=== PATIENT | female | born 1970 | race Caucasian/White ===

== ENCOUNTER 2018-05-28 12:00 | Inpatient (IN) ==
--- NOTE | 2018-05-28 12:32 | Emergency Department Note ---
ED Disposition Clinical Impression: Hypokalemia Sepsis Qualifiers: Sepsis type: sepsis due to unspecified organism Qualified Code(s): A41.9 - Sepsis, unspecified organism Disposition: Admitted As Inpatient Condition on Discharge: Good Referrals: Herman Ignacio MD [Primary Care Provider] - - Critical Care Critical Care Time: No Attestation: On 05/28/18, the high probability of a clinically significant, sudden or life th reatening deterioration of the following system(s) required my full and direct attention, intervention and personal management. The time I documented below is in addition to time spent performing reported procedures but includes the following listed in this critical care notation. Medical Decision Making - Dionte Inquiry Pt receiving controlled substance: No Vital Signs: 05/28/18 12:30 05/28/18 12:45 05/28/18 13:00 Temperature 95.9 F L 95.9 F L Temperature Source Rectal Rectal Pulse Rate 95 H Pulse Rate [Left Radial] 115 H 90 Respiratory Rate 20 17 Blood Pressure [Right Arm] 94/56 L 99/67 L Blood Pressure Mean [Right Arm] 68 77 Blood Pressure Source [Right Arm] Automatic Cuff Automatic Cuff Blood Pressure Position [Right Arm] Sitting Sitting 02 Sat by Pulse Oximetry 95 93 L Oxygen Delivery Method Room Air Room Air 05/28/18 13:32 05/28/18 14:00 05/28/18 14:22 Temperature 95.7 F L Temperature Source Rectal Pulse Rate Pulse Rate [Left Radial] 88 95 H 94 H Respiratory Rate 18 17 16 Blood Pressure [Right Arm] 103/63 L 90/44 L 109/44 L Blood Pressure Mean [Right Arm] 76 59 65 Blood Pressure Source [Right Arm] Automatic Cuff Automatic Cuff Automatic Cuff Blood Pressure Position [Right Arm] Supine Sitting Sitting 02 Sat by Pulse Oximetry 95 95 95 Oxygen Delivery Method Room Air Room Air Room Air 05/28/18 14:48 05/28/18 15:16 05/28/18 15:50 Temperature 97.6 F Temperature Source Oral Pulse Rate Pulse Rate [Left Radial] 96 H 99 H 96 H Respiratory Rate 16 16 Blood Pressure [Right Arm] 96/54 L 117/73 114/68 Blood Pressure Mean [Right Arm] 68 87 83 Blood Pressure Source [Right Arm] Automatic Cuff Automatic Cuff Automatic Cuff Blood Pressure Position [Right Arm] Sitting Sitting Sitting 02 Sat by Pulse Oximetry 95 92 L 93 L Oxygen Delivery Method Room Air Room Air Room Air - Lab Data Lab Results 05/28/18 12:18: WBC 21.6 H*, RBC 5.53 H, Hgb 14.7, Hct 48.0 H, MCV 86.9, MCH 2 6.5 L, MCHC 30.5 L, RDW 16.6, Plt Count 336, MPV 9.0, Neut % (Auto) 89.9 H, Lymph % (Auto) 4.2 L, [place] % (Auto) 5.0, Eos % (Auto) 0.2, Baso % (Auto) 0.6, Neut # (Auto) 19.4 H, Lymph # (Auto) 0.9, [place] # (Auto) 1.1 H, Eos # (Auto) 0.0, Baso # (Auto) 0.1, Total Counted 100, Neutrophils % (Manual) 53, Band Neutrophils % 39.0 H, Lymphocytes % (Manual) 5 L, Monocytes % (Manual) 3, Platelet Estimate Normal, Hypochromasia 2+ 05/28/18 12:18: Sodium 132 L, Potassium 2.2 L*, Chloride 88 L, Carbon Dioxide 26, Anion Gap 20.2 H, BUN 13, Creatinine 1.03 H, Estimated Creat Clear 55, Estimated GFR 57 L, Est GFR ( Amer) 69, Glucose 125 H, Calcium 9.4, Total Bilirubin 3.5 H, AST 3023 H*, ALT 397 H*, Alkaline Phosphatase 338 H, Troponin I < 0.02, Total Protein 7.0, Albumin 2.0 L, Globulin 5.0 H, Albumin/Globulin Ratio 0.4 L, Lipase 29 L 05/28/18 12:18: Lactate 11.4 H 05/28/18 12:18: D-Dimer 2890 H* Result diagrams: 05/28/18 12:18 05/28/18 12:18 Orders (Tests/Meds): ED MEDICATIONS Generic Name Dose Route Start Last Admin Trade Name Freq PRN Reason Stop Dose Admin Levofloxacin/Dextrose 500 mg in 100 mls @ 100 mls/hr 05/28/18 15:45 Levaquin 500mg/100ml Premix IV 06/11/18 15:44 Q24H KAREN Protocol Discontinued Medications Generic Name Dose Route Start Last Admin Trade Name Freq PRN Reason Stop Dose Admin Albuterol/Ipratropium 3 ml 05/28/18 12:37 05/28/18 12:39 Duoneb 3ml Neb 05/28/18 12:38 3 ml ONCE ONE Administration Albuterol/Ipratropium 3 ml 05/28/18 12:44 05/28/18 12:45 Duoneb 3ml Neb 05/28/18 12:45 3 ml ONCE ONE Administration Aspirin 324 mg 05/28/18 12:27 05/28/18 12:32 Aspirin 81mg Chewable Tablet PO 05/28/18 12:28 324 mg ONCE ONE Administration Sodium Chloride 1,000 mls @ 999 mls/hr 05/28/18 12:45 05/28/18 12:39 Sod Chlor 0.9% 1000ml Bag IV 05/28/18 13:45 999 mls/hr .Q1H1M KAREN Administration Sodium Chloride 1,610 mls @ 805 mls/hr 05/28/18 12:49 05/28/18 12:58 Sod Chlor 0.9% 1000ml Bag 30 ml/kg infuse over 2 hr (1610 ml) 05/28/18 14:48 805 mls/hr IV Administration .Q2H ONE Piperacillin Sod/Tazobactam 100 mls @ 200 mls/hr 05/28/18 12:50 05/28/18 12:54 Sod 3.375 gm/ Sodium Chloride IV 05/28/18 12:51 200 mls/hr Q6H ONE Administration Protocol Potassium Chloride/Water 100 mls @ 50 mls/hr 05/28/18 13:16 05/28/18 14:18 Potassium Chloride 20meq/100ml Ivpb IV 05/28/18 15:15 50 mls/hr ONCE ONE Administration Ioversol 70 ml 05/28/18 13:51 05/28/18 13:52 Rad-Optiray 350 100ml Vial IV 05/28/18 13:52 70 ml ONCE ONE Administration Methylprednisolone Sodium Succinate 125 mg 05/28/18 12:34 05/28/18 12:38 Solu-Medrol 125mg/2ml Vial IV 05/28/18 12:35 125 mg ONCE ONE Administration Sodium Chloride 10 ml 05/28/18 13:51 05/28/18 13:52 Rad-Saline Flush 10ml Syringe IV 05/28/18 13:52 10 ml ONCE ONE Administration Sodium Chloride 50 ml 05/28/18 13:51 05/28/18 13:52 Rad-Ns 50ml Vial IV 05/28/18 13:52 50 ml ONCE ONE Administration ORDERS Category Date Time Status Complete Blood Count Auto Diff Stat Lab 05/28/18 12:18 Results Peripheral Smear Review Stat Lab 05/28/18 12:18 Results Blood Culture Stat Micro 05/28/18 12:18 Received - CT Data CT Scan: Chest Time Received: 15:52 (no pe, +right pneumonia) - ECG Data Tracing #1 nsr 87, increased QTc, no stemi Medical Decision Narrative: admit d/w Dr Ignacio General Adult HPI - General Stated complaint: SOB,Right Lung hurts Time Seen by Provider: 05/28/18 12:30 Source of Information: Patient - History of Present Illness HPI narrative: mild to mod off and on anterior chest pain tight today, gone now, nonrad, no fever, no injury, no hx mi, +smoke - Related Data Home Medications Medication Instructions Recorded Confirmed Albuterol Sulfate [Ventolin HFA] 1 puff INHALATION Q4H 05/28/18 05/28/18 Levothyroxine Sodium [Synthroid 25 mcg PO DAILY 05/28/18 05/28/18 25mcg (0.025mg) tablet] PARoxetine HCl [Paroxetine HCl] 40 mg PO DAILY 05/28/18 05/28/18 Ropinirole HCl [Requip] 0.5 mg PO DAILY 05/28/18 05/28/18 risperiDONE [Risperidone] 3 mg PO ONCE 05/28/18 05/28/18 Previous Rx's Medication Instructions Recorded hydroxyzine pamoate 25 mg capsule 25 mg PO DAILY PRN #30 cap 05/16/18 Allergies Allergy/AdvReac Type Severity Reaction Status Date / Time ketorolac [From TORADOL] Allergy Severe S-SWELLS-OR Verified 05/16/18 14:04 AL/THROAT acetaminophen [From LORTAB] Allergy Unknown Verified 05/16/18 14:04 hydrocodone [From LORTAB] Allergy Unknown Verified 05/16/18 14:04 [facility] History - Hepatitis A Screen Attestation statement:: This patient has been screened for Hepatitis A risk factors. Medical History: Reports:: Anxiety, Chronic Obstructive Pulmonary Disease (COPD), Depression Other Surgeries: Yes: , Other Amputation: No Fractures: No Comment: GALLBLADDER REMOVAL - Social History Smoking Status: Current every day smoker Tobacco Type: cigarettes # Packs/Day (cigarettes): 1 Alcohol Intake: never Substance Use Type: denies use Occupational Status: disabled Housing: apartment Household Members: significant other - Psychiatric History Pschychiatric History:: Reports:: Anxiety, Depression Family Hx:: No significant family history ROS Obtained: Yes Systems reviewed as appropriate & no additional complaints - Constitutional Constitutional: Denies headache(s) - Eyes Eyes: Denies change in vision - ENT Ears, Nose, Mouth, and Throat: Denies dizziness - Cardiovascular Cardiovascular: Reports chest pain - Respiratory Respiratory: No dyspnea - Gastrointestinal Gastrointestingal: Denies: abdominal pain - Musculoskeletal Musculoskeletal: Denies neck pain - Integumentary/Breasts Skin/Breast: Denies rash - Neurologic Neurologic: Denies dizziness Physical Exam - General General appearance: alert, in no apparent distress - Head Head exam: atraumatic - Eye Eye exam: Present: normal appearance - ENT ENT exam: Present: normal exam - Neck Neck exam: Present: normal inspection - Chest Chest inspection: Present: normal inspection - Respiratory Respiratory exam: Present: normal lung sounds bilaterally - Cardiovascular Cardiovascular exam: Present: regular rate, normal rhythm - Abdominal Exam Abdominal exam: Present: soft. Absent: tenderness - Extremities Exam Extremities exam: Present: normal inspection - Back Exam Back exam: Absent: tenderness - Neurological Exam Neurological exam: Present: alert, oriented X3 - Psychiatric Psychiatric exam: Present: normal affect, normal mood - Skin Skin exam: Present: warm, dry
[2018-05-28 12:37] LABS: Basophils # 0.1 K/mm3 (0-0.2); Basophils % 0.6 % (0.1-2.0); Eosinophils % 0.2 % (0.1-12.0); Hemoglobin 14.7 g/dL (12.2-16.2); Lymphocytes # 0.9 K/mm3 (0.7-4.5); Lymphocytes % 4.2 % (10-50); Mean Corpuscular HGB Conc 30.5 g/dL (31.8-35.4); Mean Corpuscular Hemoglobin 26.5 pg (27.0-31.2); Mean Corpuscular Volume 86.9 fl (81-99); Monocytes # 1.1 K/mm3 (0.1-1.0); Neutrophils # 19.4 K/mm3 (1.8-7.8); Neutrophils % 89.9 % (37.0-80.0); Platelet Count 336 K/mm3 (142-424); Red Blood Count 5.53 M/mm3 (4.20-5.40); Red Cell Distribution Width 16.6 % (11.5-17.5); White Blood Count 21.6 K/mm3 (4.8-10.8)
[2018-05-28 12:58] LABS: Alanine Aminotransferase 397 U/L (12-78); Albumin/Globulin Ratio 0.4 (1.1-1.8); Alkaline Phosphatase 338 U/L (46-116); Anion Gap 20.2 mEq/L (5-15); Bilirubin,Total 3.5 mg/dL (0.2-1.0); Blood Urea Nitrogen 13 mg/dL (7-18); Calcium 9.4 mg/dL (8.5-10.1); Carbon Dioxide 26 mmol/L (21.0-32.0); Chloride 88 mmol/L (98-107); Lipase 29 u/L (73-393); Sodium 132 mmol/L (136-145)
[2018-05-28 13:10] LABS: Potassium 2.2 mmoL/L (3.5-5.1)
[2018-05-28 13:15] LABS: Hypochromasia 2+; Lymphocytes % 5 % (10-50); Monocytes % 3 % (2-9); Neutrophils % 53 % (42-76); Total Cells Counted 100
[2018-05-28 13:31] LABS: Glucose 125 mg/dL (74-106)
[2018-05-28 13:48] LABS: Aspartate Amino Transferase 3023 U/L (15-37)
[2018-05-29 07:32] LABS: Basophils # 0.3 K/mm3 (0-0.2); Basophils % 0.9 % (0.1-2.0); Hematocrit 40.2 % (37.0-47.0); Lymphocytes # 0.6 K/mm3 (0.7-4.5); Mean Corpuscular HGB Conc 31.3 g/dL (31.8-35.4); Mean Corpuscular Hemoglobin 26.6 pg (27.0-31.2); Mean Corpuscular Volume 85.1 fl (81-99); Mean Platelet Volume 8.6 fl (7.4-10.4); Monocytes # 0.9 K/mm3 (0.1-1.0); Monocytes % 2.8 % (1.7-9.3); Neutrophils # 29.9 K/mm3 (1.8-7.8); Neutrophils % 94.2 % (37.0-80.0); Platelet Count 259 K/mm3 (142-424); Red Blood Count 4.72 M/mm3 (4.20-5.40); Red Cell Distribution Width 16.7 % (11.5-17.5); White Blood Count 31.8 K/mm3 (4.8-10.8)
[2018-05-29 07:46] LABS: Anion Gap 12.9 mEq/L (5-15)
[2018-05-29 07:52] LABS: Potassium 2.9 mmoL/L (3.5-5.1)
[2018-05-29 08:04] LABS: Hemoglobin 12.7 g/dL (12.2-16.2)
--- NOTE | 2018-05-29 08:21 | History & Physical Report ---
*Admission Date: 05/28/18 *Chief complaint: sob *History of present illness: wf with sob and cough presented to ed -mild to mod off and on anterior chest pain tight today, gone now, nonrad, no fever, no injury, no hx mi, +smoke cta:IMPRESSION: 1. Right upper and right lower lobe pneumonia with right hilar adenopathy and patchy infiltrate in the left upper lobe in the apex. 2. There are 2 nodular densities in the right upper lobe nonspecific and could be due to areas of rounded opacification. Follow-up recommended 3. No evidence of pulmonary embolus. 4. Enlarged main pulmonary artery and right and left pulmonary arteries consistent with pulmonary arterial hypertension [facility] History I have reviewed the patient's past medical history: Yes Medical History: Reports:: Anxiety, Chronic Obstructive Pulmonary Disease ([employer] D), Depression, Heart Murmur Denies:: Cancer, Diabetes Mellitus Type 1, Diabetes Mellitus Type 2 *Have you ever received a pneumonia vaccine?: Yes *Have you received a flu vaccine this season?: No Other Medical History: Reports: Thyroid Disease Other Surgeries: Yes: , Other Amputation: No Fractures: No - *Social History Educational Level: Attended High School Smoking Status: Current every day smoker Tobacco Type: cigarettes # Packs/Day (cigarettes): 1 Alcohol Intake: current Alcohol Intake Frequency:: holidays/special occasions only Substance Use Type: marijuana *Occupational Status:: disabled Housing: apartment Household Members: significant other *Travel in the last 8 weeks: None - Psychiatric History Expresses thoughts of harming self/others: None Suicide Plan Description: No Plan Pschychiatric History:: Reports:: Anxiety, Depression Family Hx:: No significant family history Review of Systems - Review of Systems Review of systems:: pertinent systems reviewed and negative unless documented below - Constitutional Reports fever(s), Reports weakness - Eyes Denies change in vision - ENT Denies headache(s), Denies sore throat - *Cardiovascular Reports shortness of breath, Denies chest pain at rest - *Respiratory Reports cough, Reports shortness of breath, Reports pain with cough, Reports wheezing, Denies coughing up blood - *Gastrointestinal Denies abdominal pain - *Genitourinary Denies pelvic pain - *Musculoskeletal Denies joint pain, Denies limited joint movement - Integumentary/Breasts Denies rash - *Neurologic Denies dizziness, Denies headache(s) - Psychiatric Denies anxiety Meds Home Medications Medication Instructions Recorded Confirmed Type hydroxyzine pamoate 25 mg capsule 25 mg PO DAILY PRN #30 cap 05/16/18 05/28/18 Rx Albuterol Sulfate [Ventolin HFA] 1 puff INHALATION Q4H 05/28/18 05/28/18 History Levothyroxine Sodium [Synthroid 25 mcg PO DAILY 05/28/18 05/28/18 History 25mcg (0.025mg) tablet] PARoxetine HCl [Paroxetine HCl] 40 mg PO DAILY 05/28/18 05/28/18 History Ropinirole HCl [Requip] 0.5 mg PO HS 05/28/18 05/29/18 History risperiDONE [Risperidone] 3 mg PO DAILY 05/28/18 05/29/18 History Allergies Allergy/AdvReac Type Severity Reaction Status Date / Time ketorolac [From TORADOL] Allergy Severe S-SWELLS-OR Verified 05/16/18 14:04 AL/THROAT hydrocodone [From LORTAB] Allergy Unknown Verified 05/16/18 14:04 Exam Vital signs and Labs for Last 24 Hours: Temp Pulse Resp BP Pulse Ox 97.4 F L 90 17 127/77 95 05/29/18 07:58 05/29/18 07:58 05/29/18 07:58 05/29/18 07:58 05/29/18 07:58 Laboratory Results - last 24 hr 05/28/18 12:18: WBC 21.6 H*, RBC 5.53 H, Hgb 14.7, Hct 48.0 H, MCV 86.9, MCH 26.5 L, MCHC 30.5 L, RDW 16.6, Plt Count 336, MPV 9.0, Neut % (Auto) 89.9 H, Lymph % (Auto) 4.2 L, [place] % (Auto) 5.0, Eos % (Auto) 0.2, Baso % (Auto) 0.6, Neut # (Auto) 19.4 H, Lymph # (Auto) 0.9, [place] # (Auto) 1.1 H, Eos # (Auto) 0.0, Baso # (Auto) 0.1, Total Counted 100, Neutrophils % (Manual) 53, Band Neutrophils % 39.0 H, Lymphocytes % (Manual) 5 L, Monocytes % (Manual) 3, Platelet Estimate Normal, Hypochromasia 2+ 05/28/18 12:18: Sodium 132 L, Potassium 2.2 L*, Chloride 88 L, Carbon Dioxide 26, Anion Gap 20.2 H, BUN 13, Creatinine 1.03 H, Estimated Creat Clear 55, Estimated GFR 57 L, Est GFR ( Amer) 69, Glucose 125 H, Calcium 9.4, Total Bilirubin 3.5 H, AST 3023 H*, ALT 397 H*, Alkaline Phosphatase 338 H, Troponin I < 0.02, Total Protein 7.0, Albumin 2.0 L, Globulin 5.0 H, Albumin/Globulin Ratio 0.4 L, Lipase 29 L 05/28/18 12:18: Lactate 11.4 H 05/28/18 12:18: D-Dimer 2890 H* 05/28/18 17:13: Lactate 7.4 H 05/28/18 20:02: Lactate 6.6 H 05/29/18 06:41: WBC 31.8 H* D, RBC 4.72, Hgb 12.7 D, Hct 40.2, MCV 85.1, MCH 26.6 L, MCHC 31.3 L, RDW 16.7, Plt Count 259, MPV 8.6, Neut % (Auto) 94.2 H, Lymph % (Auto) 2.0 L, [place] % (Auto) 2.8, Eos % (Auto) 0.0 L, Baso % (Auto) 0.9, Neut # (Auto) 29.9 H, Lymph # (Auto) 0.6 L, [place] # (Auto) 0.9, Eos # (Auto) 0.0, Baso # (Auto) 0.3 H 05/29/18 06:41: Sodium 134 L, Potassium 2.9 L* D, Chloride 95 L, Carbon Dioxide 29, Anion Gap 12.9, BUN 11, Creatinine 0.69 D, Estimated Creat Clear 82, Estimated GFR 90, Est GFR ( Amer) 109 D, Glucose 74 D I & O for Last 24 hours: Intake & Output 05/26/18 05/27/18 05/28/18 05/29/18 10:59 11:59 11:59 11:59 Intake Total 769 / 769 Output Total 750 / 750 Balance Weight 118 lb Microbiology Reports for the Last 24 Hours: Microbiology 05/28/18 12:18 Blood Blood Culture - Preliminary 05/28/18 12:18 Blood Blood Culture - Preliminary - Constitutional no acute distress, mild distress, thin - *Routine HEENT Exam Head: Present: normocephalic Eye: Present: EOMI, PERRL ENT: Present: mucous membranes moist - *Routine Neck Exam Present: supple, full ROM - *Routine Respiratory Exam Present: wheezes - *Routine Cardiovascular Exam Present: RRR, Normal S1, Normal S2 - *Routine Abdominal Exam Present: soft, normoactive bowel sounds - *Routine Extremities Exam Present: full ROM, pulses intact - Routine Back/Spine/Pelvis Exam Back/Spine: Present: full ROM - *Routine Skin Exam Present: intact - *Routine Neurological Exam Present: alert, oriented X3, CN II-XII intact - Routine Psychiatric Exam Present: normal affect, normal thought process Assessment and Plan (1) CAP (community acquired pneumonia) Current visit: Yes Status: Acute Category: Medical Code(s): J18.9 - Pneumonia, unspecified organism (2) COPD (chronic obstructive pulmonary disease) Current visit: No Status: Acute Qualifiers: COPD type: COPD with acute exacerbation Qualified Code(s): J44.1 - Chronic obstructive pulmonary disease with (acute) exacerbation Category: Medical Code(s): J44.9 - Chronic obstructive pulmonary disease, unspecified (3) Severe sepsis Current visit: Yes Status: Acute Category: Medical Code(s): A41.9 - Sepsis, unspecified organism; R65.20 - Severe sepsis without septic shock (4) Septic shock Current visit: Yes Status: Acute Category: Medical Code(s): A41.9 - Sepsis, unspecified organism; R65.21 - Severe sepsis with septic shock (5) Tobacco use Current visit: Yes Status: Acute Category: Medical Code(s): Z72.0 - Tobacco use (6) Acquired hypothyroidism Current visit: Yes Status: Acute Category: Medical Code(s): E03.9 - Hypothyroidism, unspecified (7) Leukocytosis Current visit: Yes Status: Acute Category: Medical Code(s): D72.829 - Elevated white blood cell count, unspecified (8) Hypokalemia Current visit: Yes Status: Acute Category: Medical Code(s): E87.6 - Hypokalemia (9) Restless leg syndrome Current visit: No Status: Chronic Category: Medical Code(s): G25.81 - Restless legs syndrome (10) Anxiety Current visit: No Status: Chronic Category: Medical Code(s): F41.9 - Anxiety disorder, unspecified (11) Elevated d-dimer Current visit: Yes Status: Acute Category: Medical Code(s): R79.89 - Other specified abnormal findings of blood chemistry (12) Elevated liver enzymes Current visit: Yes Status: Acute Category: Medical Code(s): R74.8 - Abnormal levels of other serum enzymes
[2018-05-29 08:34] LABS: Calcium 8.1 mg/dL (8.5-10.1)
--- NOTE | 2018-05-29 08:44 | Pharmacy Consult Notes ---
[facility] Pharmacy VTE Monitoring - Patient Demographics Admission date: 05/28/18 Report Date: 05/29/18 Time: 08:44 Allergies/Adverse Reactions: Patient Allergies ketorolac [From TORADOL] Allergy (Severe, Verified 05/16/18 14:04) [id number]/THROAT acetaminophen [From LORTAB] Allergy (Unknown, Verified 05/16/18 14:04) hydrocodone [From LORTAB] Allergy (Unknown, Verified 05/16/18 14:04) Height: 1.57 m Weight: 53.524 kg Patient Problems: Current Active Problems Sepsis (Acute) Hypokalemia (Acute) - VTE Risk Labs: VTE Related Lab Results Hgb 12.7 g/dL (12.2-16.2) D 05/29/18 06:41 Hct 40.2 % (37.0-47.0) 05/29/18 06:41 Plt Count 259 K/mm3 (142-424) 05/29/18 06:41 BUN 11 mg/dL (7-18) 05/29/18 06:41 Creatinine 0.69 mg/dL (0.55-1.02) D 05/29/18 06:41 Estimated Creat Clear 82 mL/min (50-200) 05/29/18 06:41 Was VTE Risk Assessment Performed: Yes VTE Score: 3 VTE Risk Level: Low Risk Clinical Trial Participant: No - Prophylaxis VTE Prophylaxis Ordered?: Yes Types of VTE Prophylaxis: TEDS Knee High Location of Applied Device: Refused
[2018-05-29 09:07] LABS: Lymphocytes % 2 % (10-50); Monocytes % 2 % (2-9); Neutrophils % 70 % (42-76); Total Cells Counted 100
[2018-05-29 09:41] LABS: Albumin Level 1.6 gm/dL (3.4-5.0); Bilirubin,Indirect 0.4 mg/dL (0.0-0.9); Bilirubin,Total 3.4 mg/dL (0.2-1.0); Total Protein,Serum 5.3 gm/dL (6.4-8.2)
--- NOTE | 2018-05-30 08:22 | Progress Note ---
Internal Medicine - PN: Subj *Date: 05/30/18 *Time: 08:14 Interval history: pt feels better today and on room air - has strep pneumonia Exam Vital signs and Labs for Last 24 Hours: Temp Pulse Resp BP Pulse Ox 97.8 F 92 H 18 127/88 96 05/30/18 04:00 05/30/18 04:00 05/30/18 04:00 05/30/18 04:00 05/30/18 04:00 Laboratory Results - last 24 hr 05/29/18 06:41: Total Counted 100, Neutrophils % (Manual) 70, Band Neutrophils % 26.0 H, Lymphocytes % (Manual) 2 L, Monocytes % (Manual) 2, Platelet Estimate Normal, RBC Morphology Not Reportable 05/29/18 06:41: Calcium 8.1 L D 05/29/18 06:41: Total Bilirubin 3.4 H, Direct Bilirubin 3.0 H, Indirect Bilirubin 0.4, AST 2926 H*, ALT 1410 H*, Alkaline Phosphatase 341 H, Total Protein 5.3 L, Albumin 1.6 L D I & O for Last 24 hours: Intake & Output 05/27/18 05/28/18 05/29/18 05/30/18 11:59 11:59 11:59 11:59 Intake Total 769 / 769 1109 / 1109 Output Total 750 / 750 500 / 500 Balance 609 / 609 Weight 118 lb Microbiology Reports for the Last 24 Hours: Microbiology 05/29/18 09:14 Sputum - Expectorated Sputum Gram Stain - Final 05/29/18 09:14 Sputum - Expectorated Sputum Sputum Culture - Preliminary 05/28/18 12:18 Blood Blood Culture - Final Streptococcus pneumoniae 05/28/18 12:18 Blood Blood Culture - Final Streptococcus pneumoniae - Constitutional no acute distress, thin - *Routine HEENT Exam Head: Present: normocephalic Eye: Present: EOMI, PERRL ENT: Present: mucous membranes dry - *Routine Neck Exam Present: supple - *Routine Respiratory Exam Present: CTA bilaterally - *Routine Cardiovascular Exam Present: RRR, murmur - *Routine Abdominal Exam Present: soft - *Routine Extremities Exam Absent: calf tenderness - *Routine Skin Exam Present: intact - *Routine Neurological Exam Present: alert, oriented X3, CN II-XII intact - Routine Psychiatric Exam Present: normal affect Assessment and Plan (1) CAP (community acquired pneumonia) Current visit: Yes Status: Acute Category: Medical Code(s): J18.9 - Pneumonia, unspecified organism (2) COPD (chronic obstructive pulmonary disease) Current visit: No Status: Acute Qualifiers: COPD type: COPD with acute exacerbation Qualified Code(s): J44.1 - Chronic obstructive pulmonary disease with (acute) exacerbation Category: Medical Code(s): J44.9 - Chronic obstructive pulmonary disease, unspecified (3) Severe sepsis Current visit: Yes Status: Acute Category: Medical Code(s): A41.9 - Sepsis, unspecified organism; R65.20 - Severe sepsis without septic shock (4) Septic shock Current visit: Yes Status: Acute Category: Medical Code(s): A41.9 - Sepsis, unspecified organism; R65.21 - Severe sepsis with septic shock (5) Tobacco use Current visit: Yes Status: Acute Category: Medical Code(s): Z72.0 - Tobacco use (6) Acquired hypothyroidism Current visit: Yes Status: Acute Category: Medical Code(s): E03.9 - Hypothyroidism, unspecified (7) Leukocytosis Current visit: Yes Status: Acute Category: Medical Code(s): D72.829 - Elevated white blood cell count, unspecified (8) Hypokalemia Current visit: Yes Status: Acute Category: Medical Code(s): E87.6 - Hypokalemia (9) Restless leg syndrome Current visit: No Status: Chronic Category: Medical Code(s): G25.81 - Restless legs syndrome (10) Anxiety Current visit: No Status: Chronic Category: Medical Code(s): F41.9 - Anxiety disorder, unspecified (11) Elevated d-dimer Current visit: Yes Status: Acute Category: Medical Code(s): R79.89 - Other specified abnormal findings of blood chemistry (12) Elevated liver enzymes Current visit: Yes Status: Acute Category: Medical Code(s): R74.8 - Abnormal levels of other serum enzymes (13) Septicemia due to Streptococcus pneumoniae Current visit: Yes Status: Acute Category: Medical Code(s): A40.3 - Sepsis due to Streptococcus pneumoniae
[2018-05-30 09:14] LABS: Basophils # 0.1 K/mm3 (0-0.2); Basophils % 0.4 % (0.1-2.0); Hematocrit 37.7 % (37.0-47.0); Hemoglobin 11.8 g/dL (12.2-16.2); Lymphocytes # 1.4 K/mm3 (0.7-4.5); Lymphocytes % 6.5 % (10-50); Mean Corpuscular HGB Conc 31.2 g/dL (31.8-35.4); Mean Corpuscular Hemoglobin 26.3 pg (27.0-31.2); Mean Corpuscular Volume 84.2 fl (81-99); Mean Platelet Volume 8.2 fl (7.4-10.4); Monocytes # 0.8 K/mm3 (0.1-1.0); Monocytes % 3.5 % (1.7-9.3); Neutrophils # 19.3 K/mm3 (1.8-7.8); Neutrophils % 89.5 % (37.0-80.0); Platelet Count 236 K/mm3 (142-424); Red Blood Count 4.48 M/mm3 (4.20-5.40); Red Cell Distribution Width 16.7 % (11.5-17.5); White Blood Count 21.5 K/mm3 (4.8-10.8)
[2018-05-30 09:15] LABS: Albumin Level 1.4 gm/dL (3.4-5.0); Anion Gap 6.9 mEq/L (5-15); Bilirubin,Direct 2.2 mg/dL (0.0-0.2); Bilirubin,Indirect 0.7 mg/dL (0.0-0.9); Bilirubin,Total 2.9 mg/dL (0.2-1.0); Calcium 7.9 mg/dL (8.5-10.1); Total Protein,Serum 4.9 gm/dL (6.4-8.2)
[2018-05-30 09:22] LABS: Potassium 2.9 mmoL/L (3.5-5.1)
[2018-05-30 09:46] LABS: Lymphocytes % 4 % (10-50); Monocytes % 4 % (2-9); Neutrophils % 76 % (42-76); Total Cells Counted 100
[2018-05-30 11:17] LABS: Hepatitis B Core Antibody IgM Negative (Negative); Hepatitis B Surface Antigen Negative (Negative)
[2018-05-30 15:05] LABS: Hepatitis C Antibody <0.1 s/co ratio (0.0-0.9)
--- NOTE | 2018-05-31 09:10 | Discharge Summary ---
General - General Admission date:: 05/28/18 Discharge date: 05/31/18 HPI HPI: wf with sob and cough presented to ed -mild to mod off and on anterior chest pain tight today, gone now, nonrad, no fever, no injury, no hx mi, +smoke cta:IMPRESSION: 1. Right upper and right lower lobe pneumonia with right hilar adenopathy and patchy infiltrate in the left upper lobe in the apex. 2. There are 2 nodular densities in the right upper lobe nonspecific and could be due to areas of rounded opacification. Follow-up recommended 3. No evidence of pulmonary embolus. 4. Enlarged main pulmonary artery and right and left pulmonary arteries consistent with pulmonary arterial hypertension Hospital Course Hospital Course: Pt. sitting up in bed on 2l O2 NC, reports feeling better, will be D/C on home O2 and Levaquin 750mg IV QD X 7 days Objective Vital signs: Temp Pulse Resp BP Pulse Ox 97.6 F 89 16 113/63 90 L 05/31/18 08:00 05/31/18 08:00 05/31/18 08:00 05/31/18 08:00 05/31/18 08:00 no acute distress - *Routine HEENT Exam Head: Present: normocephalic Eye: Present: EOMI, PERRL, normal accommodation ENT: Present: mucous membranes moist - *Routine Neck Exam Present: supple, full ROM - *Routine Respiratory Exam Present: decreased breath sounds - *Routine Cardiovascular Exam Present: RRR, Normal S1, Normal S2 - *Routine Abdominal Exam Present: soft, normoactive bowel sounds - *Routine Extremities Exam Present: full ROM, pulses intact, normal capillary refill - Routine Back/Spine/Pelvis Exam Back/Spine: Present: full ROM - *Routine Skin Exam Present: intact, dry, warm - *Routine Neurological Exam Present: alert, oriented X3, CN II-XII intact - Routine Psychiatric Exam Present: normal affect, normal thought process Results Labs on day of discharge: Labs from last 24 hours 05/30/18 05/30/18 05/30/18 09:12 08:43 08:43 WBC RBC Hgb Hct MCV MCH MCHC RDW Plt Count MPV Neut % (Auto) Lymph % (Auto) [place] % (Auto) Eos % (Auto) Baso % (Auto) Neut # (Auto) Lymph # (Auto) [place] # (Auto) Eos # (Auto) Baso # (Auto) Total Counted Neutrophils % (Manual) Band Neutrophils % Lymphocytes % (Manual) Monocytes % (Manual) Platelet Estimate Sodium 131 L Potassium 2.9 L* Chloride 95 L Carbon Dioxide 32 Anion Gap 6.9 BUN 14 D Creatinine 0.68 Estimated Creat Clear 84 Estimated GFR 92 Est GFR ( Amer) 111 Glucose 104 Lactate 2.0 Calcium 7.9 L Total Bilirubin 2.9 H Direct Bilirubin 2.2 H Indirect Bilirubin 0.7 AST 629 H* D ALT 975 H* Alkaline Phosphatase 340 H Ammonia 53 Total Protein 4.9 L Albumin 1.4 L D Hepatitis A IgM Ab Hep Bs Antigen Hep B Core IgM Ab Hepatitis C Antibody 05/30/18 05/29/18 08:43 06:41 WBC 21.5 H* D RBC 4.48 Hgb 11.8 L Hct 37.7 MCV 84.2 MCH 26.3 L MCHC 31.2 L RDW 16.7 Plt Count 236 MPV 8.2 Neut % (Auto) 89.5 H Lymph % (Auto) 6.5 L [place] % (Auto) 3.5 Eos % (Auto) 0.0 L Baso % (Auto) 0.4 Neut # (Auto) 19.3 H Lymph # (Auto) 1.4 [place] # (Auto) 0.8 Eos # (Auto) 0.0 Baso # (Auto) 0.1 Total Counted 100 Neutrophils % (Manual) 76 Band Neutrophils % 16.0 H Lymphocytes % (Manual) 4 L Monocytes % (Manual) 4 Platelet Estimate Normal Sodium Potassium Chloride Carbon Dioxide Anion Gap BUN Creatinine Estimated Creat Clear Estimated GFR Est GFR ( Amer) Glucose Lactate Calcium Total Bilirubin Direct Bilirubin Indirect Bilirubin AST ALT Alkaline Phosphatase Ammonia Total Protein Albumin Hepatitis A IgM Ab Positive A Hep Bs Antigen Negative Hep B Core IgM Ab Negative Hepatitis C Antibody <0.1 Preliminary micro results at discharge 05/29/18 09:14 Sputum Culture - Preliminary Sputum - Expectorated Sputum - Imaging and Cardiology Chest x-ray Status: final report DS: Diagnosis - Discharge Diagnosis (1) CAP (community acquired pneumonia) Status: Acute (2) COPD (chronic obstructive pulmonary disease) Status: Acute (3) Severe sepsis Status: Acute (4) Septic shock Status: Acute (5) Tobacco use Status: Acute (6) Acquired hypothyroidism Status: Acute (7) Leukocytosis Status: Acute (8) Hypokalemia Status: Acute (9) Restless leg syndrome Status: Chronic (10) Anxiety Status: Chronic (11) Elevated d-dimer Status: Acute (12) Elevated liver enzymes Status: Acute (13) Septicemia due to Streptococcus pneumoniae Status: Acute (14) Hepatitis A virus infection Status: Acute Discharge Plan - Patient Discharge Instructions ACTIVITY: Continue current activity DIET: continue same diet Patient Instructions: Chronic Obstructive Pulmonary Disease, DI for Pneumonia -- Adult, Peripherally Inserted Central Catheter, Peripherally Inserted Central Catheter Infections, DI for Sepsis -- Adult, Hypokalemia - Follow up Plan Disposition: Home, Self-Longterm Medications: Home Medications Medication Instructions Recorded Confirmed Type hydroxyzine pamoate 25 mg capsule 25 mg PO DAILY PRN #30 cap 05/16/18 05/28/18 Rx Albuterol Sulfate [Albuterol HFA 1 puff INHALATION Q4H 05/28/18 05/28/18 History Inhaler] Levothyroxine Sodium [Synthroid 25 mcg PO DAILY 05/28/18 05/28/18 History 25mcg (0.025mg) tablet] PARoxetine HCl [Paroxetine HCl] 40 mg PO DAILY 05/28/18 05/28/18 History Ropinirole HCl [Requip] 0.5 mg PO HS 05/28/18 05/29/18 History risperiDONE [Risperidone] 3 mg PO DAILY 05/28/18 05/29/18 History Fluticasone/Vilanterol [Breo 1 inhalation IH DAILY #1 device 05/31/18 Rx Ellipta 100-25 Mcg INH] Levofloxacin/D5w 750 mg/150 ml 750 mg IV DAILY 7 Days #7 bag 05/31/18 Rx [Levofloxacin 750mg/150mL Premix IVPB] Nicotine [Nicoderm 21mg/24hr 21 mg TD DAILY 30 Days #30 05/31/18 Rx patch] patch.td24 Prescriptions/Medication Reconciliation: New Levofloxacin/D5w 750 mg/150 ml [Levofloxacin 750mg/150mL Premix IVPB] 750 mg IV DAILY 7 Days #7 bag Nicotine [Nicoderm 21mg/24hr patch] 21 mg TD DAILY 30 Days #30 patch.td24 Fluticasone/Vilanterol [Breo Ellipta 100-25 Mcg INH] 1 inhalation IH DAILY #1 device Continue hydroxyzine pamoate 25 mg capsule 25 mg PO DAILY PRN #30 cap PRN Reason: anxiety PARoxetine HCl [Paroxetine HCl] 40 mg PO DAILY Ropinirole HCl [Requip] 0.5 mg PO HS risperiDONE [Risperidone] 3 mg PO DAILY Levothyroxine Sodium [Synthroid 25mcg (0.025mg) tablet] 25 mcg PO DAILY Albuterol Sulfate [Albuterol HFA Inhaler] 1 puff INHALATION Q4H
--- NOTE | 2018-05-31 14:32 | Cardiology Report ---
PROCEDURE: 2-D M-mode and color Doppler study INDICATIONS FOR THE TEST: Chest pain+ COPD+ Heart Murmur+ Tobacco Smoking+ Palpitations+ Fatigue Syncope Edema Hypertension Diabetes Mellitus Rheumatic Fever SOB+PATRICK Obesity Hyperlipidemia Family History HD Additional History Sepsis, pneumonia PATIENT INFORMATION HEIGHT: 61 WEIGHT: 118 GENDER: Female B/P: 127/88 2-D/M-MODE INTERPRETATION: 2-D MEASUREMENTS OBSERVED VALUES IN CMS Right Ventricular Dimension (RVDd) 3.1 Interventricular Septum (Thickness)(IVsd) 0.7 Left Ventricular Internal Dimensions(LVIDd) 4.1 Left Ventricular Posterior Wall (Thickness)(LVPWd) 0.7 Aortic Root 2.7 Aortic Cusp Separation 2.0 Left Atrial Dimensions (LAD) 4.0 2D 1. Left atrium is mildly enlarged, left ventricle is normal size, there is no concentric left ventricular hypertrophy, visually estimated ejection fraction 50% with no regional wall motion abnormality. 2. The right atrium and right ventricle moderately enlarged, contractility of the right ventricle appears to be preserved. 3. The aortic valve is minimally thickened and fibrosed. 4. The mitral and tricuspid valve are grossly normal 5. The pulmonic valve is poorly present. 6. No significant pericardial effusion noted. DOPPLER INTERROGATION: Doppler interrogation of the aortic, mitral and tricuspid valvular presence of mild mitral and tricuspid regurgitation, calculated right ventricular systolic pressure 58 mmHg consistent with moderate pulmonary hypertension, diastolic parameters were obtained in this study. CONCLUSION: 1. Normal left ventricular size, preserved left ventricular systolic function, visually estimated ejection fraction of 50% with no regional wall motion abnormality 2. Moderately enlarged right ventricle with normal contractility. 3. Mild mitral and tricuspid regurgitation, calculated right ventricular systolic pressure is 58 mmHg consistent with moderate pulmonary hypertension. 4. No significant pericardial effusion noted.
== END 2018-05-31 12:36 | disposition home or self-care (01) | DRG 871 ==
LOC: ER 12:00 → 2ND 16:01 → ICU 17:10 → 2ND 05-29 16:51
PROVIDERS: ADMIT Emergency Medicine; ATTEND Emergency Medicine
CPT/HCPCS: 36415; 36569; 71010; 71020; 71045; 71046; 71275; 80048; 80053; 80074; 80076; 82140; 83605; 83690; 84484; 85007; 85025; 85378; 87040; 87070; 87186; 87205; 93005; 93306; 96365; 96366; 96367; 96375; 99285; C1751; J1956; J2405; J2543; Q9967

== ENCOUNTER 2018-06-01 11:43 | Outpatient (CLI) | payer MEDICAID, SELFPAY ==
--- NOTE | 2018-06-01 10:17 | [facility].PHAINT ---
DISCHARGE COUNSELING PROVIDED TO PATIENT FOR ALL MEDICATIONS. PATIENT VERBALIZED UNDERSTANDING AND DID NOT HAVE ANY QUESTIONS.
[2018-06-01 12:00] VITALS: BP 91/55; PULSE 81; RESP 20; O2SAT 93
[2018-06-01 12:30] VITALS: BP 113/69; PULSE 93; RESP 18
[2018-06-01 13:00] VITALS: BP 107/61; PULSE 86; RESP 18
[2018-06-01 13:30] VITALS: BP 105/64; PULSE 86; RESP 18
== END 2018-06-01 13:45 | disposition home or self-care (01) ==
LOC: INF 11:43
PROVIDERS: Visit Provider Emergency Medicine
DX: A41.9 Sepsis, unspecified organism (principal); B95.3 Streptococcus pneumoniae as the cause of diseases classified elsewhere
CPT/HCPCS: 96365; J1956

== ENCOUNTER 2018-06-02 11:54 | Outpatient (CLI) | payer MEDICAID, SELFPAY ==
[2018-06-02 12:11] VITALS: BP 113/64; PULSE 89; RESP 16; TEMP 36.7; O2SAT 96
[2018-06-02 13:42] VITALS: BP 111/67; PULSE 86; RESP 16; O2SAT 96
== END 2018-06-02 13:43 | disposition home or self-care (01) ==
LOC: INF 11:54
PROVIDERS: PCP Emergency Medicine; Visit Provider Emergency Medicine
DX: A41.9 Sepsis, unspecified organism (principal); B95.3 Streptococcus pneumoniae as the cause of diseases classified elsewhere
CPT/HCPCS: 96365; J1956

== ENCOUNTER 2018-06-03 11:46 | Outpatient (CLI) | payer MEDICAID, SELFPAY ==
[2018-06-03 11:46] VITALS: BP 116/72; PULSE 92; RESP 18; TEMP 36.2; O2SAT 92
[2018-06-03 11:56] VITALS: BP 96/62; PULSE 95; RESP 18; TEMP 36.2; O2SAT 92; BMI 21.7
[2018-06-03 12:07] VITALS: BP 98/60; PULSE 90; RESP 18; TEMP 36.3; O2SAT 92
== END 2018-06-03 13:30 | disposition home or self-care (01) ==
LOC: INF 11:47
PROVIDERS: PCP Emergency Medicine; Visit Provider Emergency Medicine
DX: A41.9 Sepsis, unspecified organism (principal); B95.3 Streptococcus pneumoniae as the cause of diseases classified elsewhere
CPT/HCPCS: 96365; 96366; J1956

== ENCOUNTER 2018-06-04 11:28 | Outpatient (CLI) | payer MEDICAID, SELFPAY ==
[2018-06-04 11:38] VITALS: BP 90/50; PULSE 81; RESP 18; TEMP 36.6; O2SAT 99
[2018-06-04 12:08] VITALS: BP 91/52; PULSE 80; RESP 18; O2SAT 99
[2018-06-04 12:38] VITALS: BP 94/51; PULSE 82; RESP 18; O2SAT 98
[2018-06-04 13:08] VITALS: BP 112/59; PULSE 95; RESP 18; O2SAT 99
== END 2018-06-04 13:15 | disposition home or self-care (01) ==
LOC: INF 11:28
PROVIDERS: Visit Provider Emergency Medicine
DX: A41.9 Sepsis, unspecified organism (principal); B95.3 Streptococcus pneumoniae as the cause of diseases classified elsewhere
CPT/HCPCS: 96365; J1956

== ENCOUNTER → 2018-06-05 11:42 | Outpatient (CLI) | payer MEDICAID, SELFPAY ==
[2018-06-05 11:56] VITALS: BP 104/65; PULSE 103; RESP 18
[2018-06-05 13:55] VITALS: BP 106/59; PULSE 96
== END ==
PROVIDERS: Visit Provider Emergency Medicine
DX: A41.9 Sepsis, unspecified organism (principal); B95.3 Streptococcus pneumoniae as the cause of diseases classified elsewhere
CPT/HCPCS: 96365; 96366; J1956

== ENCOUNTER 2018-06-06 12:35 | Outpatient (CLI) | payer MEDICAID, SELFPAY ==
[2018-06-06 12:55] VITALS: BP 106/56; PULSE 80; RESP 18; TEMP 36.7; O2SAT 97
[2018-06-06 13:25] VITALS: BP 109/55; PULSE 79; RESP 18; O2SAT 96
[2018-06-06 13:55] VITALS: BP 103/59; PULSE 74; RESP 18; O2SAT 97
[2018-06-06 14:25] VITALS: BP 105/61; PULSE 78; RESP 18; O2SAT 97
[2018-06-06 14:50] VITALS: BP 110/64; PULSE 76; RESP 18; O2SAT 96
== END 2018-06-06 15:00 | disposition home or self-care (01) ==
LOC: INF 12:48
PROVIDERS: Visit Provider Emergency Medicine
DX: A41.9 Sepsis, unspecified organism (principal); B95.3 Streptococcus pneumoniae as the cause of diseases classified elsewhere
CPT/HCPCS: 96365; J1956

== ENCOUNTER 2018-06-07 12:09 | Outpatient (CLI) | payer MEDICAID, SELFPAY ==
[2018-06-07 12:25] VITALS: BP 97/60; PULSE 95; RESP 20; O2SAT 98
[2018-06-07 13:10] VITALS: BP 93/62; PULSE 91; RESP 18
[2018-06-07 13:55] VITALS: BP 92/45; PULSE 95; RESP 18
== END 2018-06-07 14:15 | disposition home or self-care (01) ==
LOC: INF 12:09
PROVIDERS: Visit Provider Emergency Medicine
DX: A41.9 Sepsis, unspecified organism (principal); B95.3 Streptococcus pneumoniae as the cause of diseases classified elsewhere
CPT/HCPCS: 96365; J1956

== ENCOUNTER 2018-12-03 17:24 | Inpatient (IN) ==
[2018-12-03 18:11] LABS: ABG Base Excess 13.1 mmol/L (-2.4-2.3); ABG HCO3 36.8 mmhg (22.0-26.0); ABG Oxygen Saturation 84 % (90-100); ABG PH 7.47 mmol/L (7.35-7.45); ABG TCO2 38.3 mmhg (23-27)
[2018-12-03 18:13] LABS: Basophils # 0.1 K/mm3 (0-0.2); Basophils % 0.4 % (0.1-2.0); Eosinophils # 0.2 K/mm3 (0.0-0.4); Eosinophils % 1.2 % (0.1-12.0); Hematocrit 42.1 % (37.0-47.0); Hemoglobin 13.1 g/dL (12.2-16.2); Lymphocytes # 2.5 K/mm3 (0.7-4.5); Lymphocytes % 19.1 % (10-50); Mean Corpuscular Volume 82.6 fl (81-99); Monocytes # 0.9 K/mm3 (0.1-1.0); Monocytes % 6.6 % (1.7-9.3); Neutrophils # 9.5 K/mm3 (1.8-7.8); Neutrophils % 72.7 % (37.0-80.0); Platelet Count 675 K/mm3 (142-424); Red Cell Distribution Width 13.4 % (11.5-17.5); White Blood Count 13.1 K/mm3 (4.8-10.8)
[2018-12-03 18:15] LABS: Allen's Test Acceptable; Oxygen room air %
[2018-12-03 18:16] LABS: ABG PCO2 51.9 mmhg (35.0-45.0); ABG PO2 43.7 mmhg (80-100)
--- NOTE | 2018-12-03 18:26 | Emergency Department Note ---
ED Disposition Clinical Impression: Acute exacerbation of chronic obstructive pulmonary disease (COPD), Acute respiratory distress, Elevated d-dimer Acute and chronic respiratory failure Qualifiers: Respiratory failure complication: hypoxia and hypercapnia Qualified Code(s): J96.21 - Acute and chronic respiratory failure with hypoxia Pneumonia Qualifiers: Pneumonia type: due to unspecified organism Laterality: left Lung location: lower lobe of lung Qualified Code(s): J18.1 - Lobar pneumonia, unspecified organism Sepsis Qualifiers: Sepsis type: sepsis due to unspecified organism Sepsis acute organ dysfunction status: unspecified Qualified Code(s): A41.9 - Sepsis, unspecified organism Abdominal pain Qualifiers: Abdominal location: left lower quadrant Qualified Code(s): R10.32 - Left lower quadrant pain Disposition: Admitted As Inpatient Condition on Discharge: Fair (Stable) Referrals: Carmen Arauz APRN [Primary Care Provider] - Time of Disposition: 19:45 - Critical Care Critical Care Time: No Attestation: On 12/03/18, the high probability of a clinically significant, sudden or life threatening deterioration of the following system(s) required my full and direct attention, intervention and personal management. The time I documented below is in addition to time spent performing reported procedures but includes the following listed in this critical care notation. Medical Decision Making - Medical Records Medical records reviewed: Yes: I reviewed the patient's medical records. - Dionte Inquiry Pt receiving controlled substance: No Dionte was queried for this patient: No Vital Signs: 12/03/18 17:43 Temperature 97.6 F Temperature Source Oral Pulse Rate [Left Radial] 101 H Respiratory Rate 26 H Blood Pressure [Right Arm] 113/67 Blood Pressure Mean [Right Arm] 82 Blood Pressure Source [Right Arm] Automatic Cuff Blood Pressure Position [Right Arm] Sitting 02 Sat by Pulse Oximetry 82 L Oxygen Delivery Method Room Air - Lab Data Lab results reviewed: Yes: I reviewed the patient's lab results. Lab Results 12/03/18 17:15: Magnesium 1.6 12/03/18 17:49: Specimen Source Right radial, O2 % room air, ABG pH 7.47 H, ABG pCO2 51.9 H, ABG pO2 43.7 L, ABG HCO3 36.8 H, ABG Total CO2 38.3 H, ABG O2 Saturation 84 L*, ABG Base Excess 13.1 H, Luiz Test Acceptable 12/03/18 17:50: WBC 13.1 H, RBC 5.10, Hgb 13.1, Hct 42.1, MCV 82.6, MCH 25.6 L, MCHC 31.0 L, RDW 13.4, Plt Count 675 H, MPV 7.0 L, Neut % (Auto) 72.7, Lymph % (Auto) 19.1, [place] % (Auto) 6.6, Eos % (Auto) 1.2, Baso % (Auto) 0.4, Neut # (Auto) 9.5 H, Lymph # (Auto) 2.5, [place] # (Auto) 0.9, Eos # (Auto) 0.2, Baso # (Auto) 0.1 12/03/18 17:50: Sodium 135 L, Potassium 3.4 L, Chloride 93 L, Carbon Dioxide 37 H, Anion Gap 8.4, BUN 7, Creatinine 0.62, Estimated Creat Clear 86, Estimated GFR 102, Est GFR ( Amer) 123, Glucose 100, Calcium 9.7, Total Bilirubin 0.3, AST 18, ALT 16, Alkaline Phosphatase 130 H, Total Protein 8.3 H D, Albumin 2.5 L, Globulin 5.8 H, Albumin/Globulin Ratio 0.4 L 12/03/18 17:50: Lactate 1.0 12/03/18 17:50: D-Dimer 1700 H* 12/03/18 17:50: Troponin I < 0.02 12/03/18 17:50: B-Natriuretic Peptide 43 Result diagrams: 12/03/18 17:50 12/03/18 17:50 Orders (Tests/Meds): ED MEDICATIONS Generic Name Dose Route Start Last Admin Trade Name Freq PRN Reason Stop Dose Admin Magnesium Sulfate 2 gm/ Sodium 104 mls @ 100 mls/hr 12/03/18 18:36 12/03/18 18:42 Chloride IV 12/03/18 19:38 100 mls/hr ONCE ONE Administration Vancomycin HCl 1,000 mg 12/03/18 18:52 Vancomycin 1000mg Vial IV 12/03/18 18:53 ONCE ONE Protocol Discontinued Medications Generic Name Dose Route Start Last Admin Trade Name Freq PRN Reason Stop Dose Admin Albuterol Sulfate 15 mg 12/03/18 18:27 12/03/18 18:36 Albuterol 0.083% 2.5mg/3ml [facility] 12/03/18 18:28 15 mg ONCE ONE Administration Albuterol/Ipratropium 3 ml 12/03/18 17:49 12/03/18 17:51 Duoneb 3ml [facility] 12/03/18 17:50 3 ml ONCE ONE Administration Piperacillin Sod/Tazobactam 50 mls @ 100 mls/hr 12/03/18 18:53 Sod 3.375 gm/ Sodium Chloride IV 12/03/18 19:22 ONCE ONE Protocol Ioversol 100 ml 12/03/18 19:18 12/03/18 19:19 Rad-Optiray 350 100ml Vial IV 12/03/18 19:19 100 ml ONCE ONE Administration Protocol Methylprednisolone Sodium Succinate 125 mg 12/03/18 17:49 12/03/18 17:51 Solu-Medrol 125mg/2ml Vial IV 12/03/18 17:50 125 mg ONCE ONE Administration Methylprednisolone Sodium Succinate 125 mg 12/03/18 18:26 12/03/18 18:33 Solu-Medrol 125mg/2ml Vial IV 12/03/18 18:27 Not Given ONCE ONE Sodium Chloride 50 ml 12/03/18 19:18 12/03/18 19:19 Rad-Ns 50ml Vial IV 12/03/18 19:19 50 ml ONCE ONE Administration Sodium Chloride 10 ml 12/03/18 19:18 12/03/18 19:19 Rad-Saline Flush 10ml Syringe IV 12/03/18 19:19 10 ml ONCE ONE Administration ORDERS Category Date Time Status CT Chest w/PE protocol [CT angio chest] Stat Cat Scan 12/03/18 18:[address] abdomen pelvis w con Stat Cat Scan 12/03/18 18:28 Taken XR chest 2V Stat Exams 12/03/18 17:49 Taken Urinalysis and Microscopic Stat Lab 12/03/18 19:31 Received Blood Culture Stat Micro 12/03/18 17:50 Received EKG Request [ECG Request by /Nse] Stat Y 12/03/18 17:51 Ordered - Radiology Data #1 Image(s): Chest Image Reviewed: Yes I reviewed the patient's radiology image Preliminary Findings: Abnormal Preliminary PCXR reading by myself: COPD changes, LLL infiltrate. - CT Data CT Scan: Abdomen, Chest Time Received: 19:37 Findings Narrative: CT Abdomen and Pelvis w/contrast: 1. No acute intra-abdominal abnormality. CT PE Chest: 1. No evidence of pulmonary embolism to the segmental level. 2. There is interval development of diffuse tree in bud nodularity in the bilateral lungs, likely infections or inflammatory in etiology including atypical pneumonia. Interval resolution of the previously noted right upper lobe consolidation. 3. There are acute appearing, minimal displaced fractures of left posterior 11th and 1rth ribs. 4. Enlarged central pulmonary arteries can be seen with pulmonary hypertension. Main pulmonary artery measures 4.6 cm, which is unchanged from prior exam 5. Mild mediastinal adenopathy is unchanged. - ECG Data Tracing #1 I reviewed this ECG and interpreted as documented below: (EKG at 17:53 shows NSR, UMM, rightward axis, pulmonary disease pattern, nonspecific ST abnormality, prolonged QT, rate pf 98 BPM.) Medical Decision Narrative: 18:44 Pt evaluated. EKG, PCXR and labs ordered. SoluMedrol 125 mg IVP and DuoNeb x 1 ordered. Pt also placed on O2 @ 2 L/min via NC. Pt improved after DuoNeb and SoluMedrol but still in some mild distress. Continuous albuterol 15 mg neb over 1 hour ordered as well as Magnesium 2 gm IVPB. BC x 2 ordered and pending. Pt does meet sepsis protocol. PCXR shows COPD changes and LLL infiltrate. Vancomycin and Zosyn ordered. Pt will need admitted. Pt and spouse are aware and in agreement. 18:57 D-dimer elevated. CT PE chest ordered. 19:[address] Lawrence who is automotive power electronics engineer for Dr. Ignacio and he has accepted care/admission of this pt to himself. Pt and spouse aware of all results and care plan. All questions answered. Resp/SOB HPI - General Chief Complaint: Shortness of Breath/Dyspnea Stated Complaint: SOA Time Seen by Provider: 12/03/18 18:19 Mode of Arrival: Ambulatory Source of Information: Patient Limitations: No Limitations Description of Symptoms (Recalled from ER Triage Doc. by RN): c/o soa for a week, states she feels bad - History of Present Illness Pt is here in the ER via POV from home with for evaluation c/o increasing SOB and cough for 1 week. Pt has COPD and is a smoker. She denies chest pain and fever. She is also c/o LLQ pain upon examination. No constipation, diarrhea or complaints. SaO2 82% on RA upon presenting. - Related Data Home Medications Medication Instructions Recorded Confirmed Nicotine [Nicoderm 21mg/24hr 21 mg TD DAILY 06/01/18 12/03/18 patch] Previous Rx's Medication Instructions Recorded albuterol sulfate HFA 90 1 puff INHALATION Q4H #18 g 09/13/18 mcg/actuation aerosol inhaler budesonide-formoterol HFA 80 2 puff INHALATION BID #10.2 g 11/26/18 mcg-4.5 mcg/actuation aerosol inhaler hydroxyzine pamoate 25 mg capsule 25 mg PO BID PRN #60 cap 11/26/18 levothyroxine 25 mcg tablet 25 mcg PO DAILY #30 tab 11/26/18 paroxetine 40 mg tablet 40 mg PO DAILY #30 tab 11/26/18 risperidone 3 mg tablet 3 mg PO DAILY #30 tab 11/26/18 ropinirole 0.5 mg tablet 0.5 mg PO HS #30 tab 11/26/18 Allergies Allergy/AdvReac Type Severity Reaction Status Date / Time ketorolac [From TORADOL] Allergy Severe S-SWELLS-OR Verified 06/13/18 13:13 AL/THROAT hydrocodone [From LORTAB] Allergy Unknown Verified 06/13/18 13:13 [facility] History - Hepatitis A Screen Drug use history?: Yes High risk sexual behaviors?: No History of sexually transmitted infection?: No Currently employed?: No Childcare worker?: No Do you have indoor plumbing?: Yes Do you have electricity?: Yes Attestation statement:: This patient has been screened for Hepatitis A risk factors. I have reviewed the patient's past medical history: Yes Medical History: Reports:: Anxiety, Chronic Obstructive Pulmonary Disease (COPD), Depression, Heart Murmur Denies:: Cancer, Diabetes Mellitus Type 1, Diabetes Mellitus Type 2 Other Medical History: Reports: Thyroid Disease Other Surgeries: Yes: , Other Amputation: No Fractures: No Comment: GALLBLADDER REMOVAL - Social History Smoking Status: Current every day smoker Tobacco Type: cigarettes # Packs/Day (cigarettes): 1 Alcohol Intake: never Alcohol Intake Frequency:: holidays/special occasions only Substance Use Type: marijuana Last Used Substance: days (ago) Occupational Status: disabled Housing: apartment Household Members: significant other - Psychiatric History Pschychiatric History:: Reports:: Anxiety, Depression Family Hx:: No significant family history ROS Obtained: Yes All systems reviewed & no additional complaints - Constitutional Constitutional: Reports system reviewed and no additional complaints, except as docu - Eyes Eyes: Reports system reviewed and no additional complaints, except as docu - ENT Ears, Nose, Mouth, and Throat: Reports system reviewed and no additional comp laints, except as docu - Cardiovascular Cardiovascular: Reports system reviewed and no additional complaints, except as docu - Respiratory Respiratory: Yes system reviewed and no additional complaints, except as docu, Yes non-productive cough, Yes dyspnea, Yes dyspnea on exertion, Yes wheezing - Gastrointestinal Gastrointestingal: Reports: system reviewed and no additional complaints, except as docu, as per HPI, abdominal pain (LLQ area) - Genitourinary Female Genitourinary: Reports system reviewed and no additional complaints, except as docu - Musculoskeletal Musculoskeletal: Reports system reviewed and no additional complaints, except as docu - Integumentary/Breasts Skin/Breast: Reports system reviewed and no additional complaints, except as docu - Neurologic Neurologic: Reports system reviewed and no additional complaints, except as docu - Endocrine Endocrine: Reports system reviewed and no additional complaints, except as docu - Hematologic/Lymphatic Henatologic/Lymphatic: Reports system reviewed and no additional complaints, exc ept as docu - Allergic/Immunologic Allergic/Immunologic: Reports system reviewed and no additional complaints, except as docu Physical Exam - General General appearance: alert, anxious (mild), other (appears dyspneic) - Head Head exam: atraumatic, normocephalic - Eye Eye exam: Present: PERRL, EOMI - ENT ENT exam: Present: mucous membranes moist - Neck Neck exam: Present: trachea midline - Chest Chest inspection: Present: normal inspection, symmetric chest wall rise. Absent: tenderness - Respiratory Respiratory exam: Present: respiratory distress (mild), wheezes (diffuse inspiratory and expiratory), accessory muscle use, other (generalized diminished BS bilaterally.) - Cardiovascular Cardiovascular exam: Present: tachycardia, normal heart sounds. Absent: systolic murmur, diastolic murmur, rubs, gallop, clicks, JVD - Abdominal Exam Abdominal exam: Present: soft, tenderness (on palpation of LLQ), diminished bowel sounds. Absent: guarding, rebound, rigidity, Chandler's sign, tenderness at McBurney's Point - Extremities Exam Extremities exam: Present: normal inspection, full ROM. Absent: pedal edema - Neurological Exam Neurological exam: Present: alert, oriented X3, CN II-XII intact - Psychiatric Psychiatric exam: Present: anxious (mild) - Skin Skin exam: Present: warm, dry, intact, normal color. Absent: cyanosis, diaphoresis
[2018-12-03 18:36] LABS: Albumin Level 2.5 gm/dL (3.4-5.0); Albumin/Globulin Ratio 0.4 (1.1-1.8); Anion Gap 8.4 mEq/L (5-15); Bilirubin,Total 0.3 mg/dL (0.2-1.0); Calcium 9.7 mg/dL (8.5-10.1); Globulin 5.8 gm/dl (1.3-3.2); Total Protein,Serum 8.3 gm/dL (6.4-8.2)
[2018-12-03 19:36] LABS: Microscopic, Urine URINE MICROSCOPIC (MICROSCOPIC)
[2018-12-03 19:38] LABS: Appearance,Urine CLEAR (Clear); Blood, Urine Negative (Negative); Color,Urine YELLOW (Yellow); Glucose,Urine (UA) Negative (Negative); Ketones,Urine 1+ (Negative); Leukocyte Esterase,Urine Negative (Negative); Protein,Urine Negative (Negative); Urobilinogen,Urine 0.2 EU/dl (0.2)
[2018-12-03 19:47] LABS: Bacteria,Urine 1+ /lpf; Bilirubin,Urine Negative (Negative)
--- NOTE | 2018-12-04 07:09 | History & Physical Report ---
*Admission Date: 12/03/18 *Chief complaint: SOA *History of present illness: Mrs. Gallo is a 48 yo F who presented to the ER from home with for shortness of breath and worsening cough over the past week. Pt has COPD and is a smoker. She denies chest pain and fever. She is also c/o LLQ pain upon examination. No constipation, diarrhea or complaints. SaO2 82% on RA upon presenting. [facility] History Medical History: Reports:: Anxiety, Cancer (uterine), Chronic Obstructive Pulmonary Disease (COPD), Depression, Heart Murmur Denies:: Diabetes Mellitus Type 1, Diabetes Mellitus Type 2, MRSA *Have you ever received a pneumonia vaccine?: No *Have you received a flu vaccine this season?: No Other Medical History: Reports: Anemia, Hypothyroidism, Thyroid Disease Other Surgeries: Yes: Cancer Surgery, , Other Amputation: No Fractures: No - *Social History Smoking Status: Current every day smoker Tobacco Type: cigarettes # Packs/Day (cigarettes): 2 Alcohol Intake: current Alcohol Intake Frequency:: holidays/special occasions only Substance Use Type: marijuana Last Used Substance: unknown *Occupational Status:: disabled Housing: apartment Household Members: significant other *Travel in the last 8 weeks: None - Psychiatric History Pschychiatric History:: Reports:: Anxiety, Depression Family Hx:: No significant family history Meds Home Medications Medication Instructions Recorded Confirmed Type Nicotine [Nicoderm 21mg/24hr 21 mg TD DAILY 06/01/18 12/03/18 History patch] albuterol sulfate HFA 90 1 puff INHALATION Q4H #18 g 09/13/18 12/03/18 Rx mcg/actuation aerosol inhaler budesonide-formoterol HFA 80 2 puff INHALATION BID #10.2 g 11/26/18 12/03/18 Rx mcg-4.5 mcg/actuation aerosol inhaler hydroxyzine pamoate 25 mg capsule 25 mg PO BID PRN #60 cap 11/26/18 12/03/18 Rx levothyroxine 25 mcg tablet 25 mcg PO DAILY #30 tab 11/26/18 12/03/18 Rx paroxetine 40 mg tablet 40 mg PO DAILY #30 tab 11/26/18 12/03/18 Rx risperidone 3 mg tablet 3 mg PO DAILY #30 tab 11/26/18 12/03/18 Rx ropinirole 0.5 mg tablet 0.5 mg PO HS #30 tab 11/26/18 12/03/18 Rx Allergies Allergy/AdvReac Type Severity Reaction Status Date / Time ketorolac [From TORADOL] Allergy Severe S-SWELLS-OR Verified 06/13/18 13:13 AL/THROAT hydrocodone [From LORTAB] Allergy Unknown Verified 06/13/18 13:13 Exam Vital signs and Labs for Last 24 Hours: Temp Pulse Resp BP Pulse Ox 99.4 F 101 H 20 115/47 L 92 L 12/04/18 04:00 12/04/18 05:50 12/04/18 04:00 12/04/18 04:00 12/04/18 06:40 Laboratory Results - last 24 hr 12/03/18 17:15: Magnesium 1.6 12/03/18 17:49: Specimen Source Right radial, O2 % room air, ABG pH 7.47 H, ABG pCO2 51.9 H, ABG pO2 43.7 L, ABG HCO3 36.8 H, ABG Total CO2 38.3 H, ABG O2 Saturation 84 L*, ABG Base Excess 13.1 H, Luiz Test Acceptable 12/03/18 17:50: WBC 13.1 H, RBC 5.10, Hgb 13.1, Hct 42.1, MCV 82.6, MCH 25.6 L, MCHC 31.0 L, RDW 13.4, Plt Count 675 H, MPV 7.0 L, Neut % (Auto) 72.7, Lymph % (Auto) 19.1, [place] % (Auto) 6.6, Eos % (Auto) 1.2, Baso % (Auto) 0.4, Neut # (Auto) 9.5 H, Lymph # (Auto) 2.5, [place] # (Auto) 0.9, Eos # (Auto) 0.2, Baso # (Auto) 0.1 12/03/18 17:50: Sodium 135 L, Potassium 3.4 L, Chloride 93 L, Carbon Dioxide 37 H, Anion Gap 8.4, BUN 7, Creatinine 0.62, Estimated Creat Clear 86, Estimated GFR 102, Est GFR ( Amer) 123, Glucose 100, Calcium 9.7, Total Bilirubin 0.3, AST 18, ALT 16, Alkaline Phosphatase 130 H, Total Protein 8.3 H D, Albumin 2.5 L, Globulin 5.8 H, Albumin/Globulin Ratio 0.4 L 12/03/18 17:50: Lactate 1.0 12/03/18 17:50: D-Dimer 1700 H* 12/03/18 17:50: Troponin I < 0.02 12/03/18 17:50: B-Natriuretic Peptide 43 12/03/18 19:31: Urine Color Yellow, Urine Appearance Clear, Urine pH 7.0, Ur Specific [place] 1.010, Urine Protein Negative, Urine Glucose (UA) Negative, Urine Ketones 1+, Urine Blood Negative, Urine Nitrate Negative, Urine Bilirubin Negative, Urine Urobilinogen 0.2, Ur Leukocyte Esterase Negative, Urine RBC 3-5, Urine WBC 5-10, Ur Squamous Epith Cells 5-10, Urine Bacteria 1+ I & O for Last 24 hours: Intake & Output 12/01/18 12/02/18 12/03/18 12/04/18 23:59 23:59 23:59 23:59 Intake Total 150 / 150 Balance 150 / 150 Weight 47.287 kg 47.287 kg
--- NOTE | 2018-12-04 07:36 | Pharmacy Consult Notes ---
[facility] Pharmacy VTE Monitoring - Patient Demographics Admission date: 12/03/18 Report Date: 12/04/18 Time: 07:35 Allergies/Adverse Reactions: Patient Allergies ketorolac [From TORADOL] Allergy (Severe, Verified 06/13/18 13:13) [id number]/THROAT hydrocodone [From LORTAB] Allergy (Unknown, Verified 06/13/18 13:13) Height: 1.57 m Weight: 47.287 kg Patient Problems: Current Active Problems Acute exacerbation of chronic obstructive pulmonary disease (COPD) (Acute) Acute and chronic respiratory failure (Acute) Acute respiratory distress (Acute) Pneumonia (Acute) Abdominal pain (Acute) Sepsis (Acute) Elevated d-dimer (Acute) - VTE Risk Labs: VTE Related Lab Results Hgb 13.1 g/dL (12.2-16.2) 12/03/18 17:50 Hct 42.1 % (37.0-47.0) 12/03/18 17:50 Plt Count 675 K/mm3 (142-424) H 12/03/18 17:50 BUN 7 mg/dL (7-18) 12/03/18 17:50 Creatinine 0.62 mg/dL (0.55-1.02) 12/03/18 17:50 Estimated Creat Clear 86 mL/min (50-200) 12/03/18 17:50 VTE Risk Level: Moderate Risk - Prophylaxis VTE Prophylaxis Ordered?: Yes Types of VTE Prophylaxis: TEDS Knee High Location of Applied Device: Bilateral Lower Extremeties - VTE Diagnosis Confirmed Treatment or plan recommended: Continue Current Treatment
[2018-12-04 08:00] LABS: Basophils % 0.1 % (0.1-2.0); Eosinophils # 0.1 K/mm3 (0.0-0.4); Eosinophils % 0.4 % (0.1-12.0); Hematocrit 36.1 % (37.0-47.0); Lymphocytes # 1.1 K/mm3 (0.7-4.5); Lymphocytes % 10.1 % (10-50); Mean Corpuscular HGB Conc 30.5 g/dL (31.8-35.4); Mean Platelet Volume 7.2 fl (7.4-10.4); Monocytes # 0.5 K/mm3 (0.1-1.0); Monocytes % 4.6 % (1.7-9.3); Neutrophils # 8.8 K/mm3 (1.8-7.8); Neutrophils % 84.7 % (37.0-80.0); Platelet Count 589 K/mm3 (142-424); Red Cell Distribution Width 13.6 % (11.5-17.5); White Blood Count 10.4 K/mm3 (4.8-10.8)
[2018-12-04 08:11] LABS: Albumin Level 2.1 gm/dL (3.4-5.0); Albumin/Globulin Ratio 0.4 (1.1-1.8); Bilirubin,Total 0.2 mg/dL (0.2-1.0); Calcium 9.2 mg/dL (8.5-10.1); Globulin 4.9 gm/dl (1.3-3.2)
[2018-12-04 08:45] LABS: Hemoglobin 11.2 g/dL (12.2-16.2)
--- NOTE | 2018-12-04 09:00 | History & Physical Report ---
*Admission Date: 12/03/18 <Kilo Goldman - 12/04/18 09:00> *Chief complaint: SOA <JosuechynaKilo haynes - 12/04/18 09:00> *History of present illness: Rounded with nurse practitioner. Agree with exam findings and care plan as documented. <David Lawrence - 12/04/18 14:09> 48-year-old female patient presents to the ER from home for increasing shortness of breath and worsening productive yellow/green thick cough over 7 days. She reports she has COPD, smokes 1-1 1/2 PPD, and is on 2-3 L oxygen at home. She denies chest pain, fever, constipation, diarrhea, or complaints. She also reports night sweats. In the ED she received Vanc, piperacillin Sod/Tazobactam, and IV steroids. This morning she reports she is feeling better. She reports that she is breathing easier, on O2 at 2.5 L space per N/C and requesting breakfast. <JosuechynaRemy haynesel - 12/04/18 09:25> [facility] History Medical History: Reports:: Anxiety, Cancer (uterine), Chronic Obstructive Pulmonary Disease (COPD), Depression, Heart Murmur Denies:: Diabetes Mellitus Type 1, Diabetes Mellitus Type 2, MRSA <JosuechynadallasKilo - 12/04/18 09:00> *Have you ever received a pneumonia vaccine?: No <JonesKilo 12/04/18 09:00> *Have you received a flu vaccine this season?: No <Kilo Goldman 12/04/18 09:00> Other Medical History: Reports: Anemia, Hypothyroidism, Thyroid Disease <Kilo Goldman 12/04/18 09:00> Other Surgeries: Yes: Cancer Surgery, , Other <Kilo Goldman 12/04/18 09:00> Amputation: No <Kilo Goldman 12/04/18 09:00> Fractures: No <Kilo Goldman 12/04/18 09:00> - *Social History Smoking Status: Current every day smoker <Kilo Goldman 12/04/18 09:00> Tobacco Type: cigarettes <Kilo Goldman 12/04/18 09:00> # Packs/Day (cigarettes): 2 <Kilo Goldman 12/04/18 09:00> Alcohol Intake: current <Kilo Goldman 12/04/18 09:00> Alcohol Intake Frequency:: holidays/special occasions only <Kilo Goldman 12/04/18 09:00> Substance Use Type: marijuana <Kilo Goldman 12/04/18 09:00> Last Used Substance: unknown <Kilo Goldman 12/04/18 09:00> *Occupational Status:: disabled <Kilo Goldman 12/04/18 09:00> Housing: apartment <Kilo Goldman 12/04/18 09:00> Household Members: significant other <Kilo Goldman 12/04/18 09:00> *Travel in the last 8 weeks: None <Kilo Goldman 12/04/18 09:00> - Psychiatric History Pschychiatric History:: Reports:: Anxiety, Depression <Kilo Goldman 12/04/18 09:00> Family Hx:: No significant family history <Kilo Goldman 12/04/18 09:00> Review of Systems - Review of Systems Review of systems:: pertinent systems reviewed and negative unless documented below <Kilo Goldman 12/04/18 09:11> - Constitutional Reports lack of energy, Reports night sweats, Reports weakness <Kilo Goldman 12/04/18 09:11> - Eyes Denies blurry vision, Denies change in vision <Kilo Goldman 12/04/18 09:11> - ENT Denies difficulty swallowing, Denies neck pain <Kilo Goldman 12/04/18 0 9:11> - *Cardiovascular Reports shortness of breath, Reports shortness of breath with activity, Reports shortness of breath when lying down, Denies chest pain, Denies rapid, pounding, or irregular heartbeat <Kilo Goldman 12/04/18 09:11> - *Respiratory Reports change in phlegm color, Reports chest congestion, Reports cough, Reports shortness of breath, Reports wheezing, Denies coughing up blood <Kilo Goldman 12/04/18 09:11> - *Gastrointestinal Denies abdominal pain, Denies change in stools, Denies coffee ground vomit <Kilo Goldman 12/04/18 09:11> - *Genitourinary Denies difficulty urinating, Denies painful urination <Kilo Goldman 12/04/18 09:11> - *Musculoskeletal Denies back pain, Denies neck pain <Kilo Goldman 12/04/18 09:11> - Integumentary/Breasts Denies new lesions, Denies wounds <Kilo Goldman 12/04/18 09:11> - *Neurologic Denies abnormal movements, Denies behavioral changes, Denies tingling/numbness/burning sensations <Kilo Goldman 12/04/18 09:11> - Psychiatric Denies thoughts of hurting/killing others <Kilo Goldman 12/04/18 09:11> - Endocrine Denies rapid, pounding, or irregular heartbeat <Kilo Goldman 12/04/18 09:11> - Hematologic/Lymphatic Denies easy bleeding <Kilo Goldman 12/04/18 09:11> - Allergic/Immunologic Denies lip swelling, Denies tongue swelling <Kilo Goldman 12/04/18 09:11> Meds Home Medications Medication Instructions Recorded Confirmed Type Nicotine [Nicoderm 21mg/24hr 21 mg TD DAILY 06/01/18 12/03/18 History patch] budesonide-formoterol HFA 80 2 puff INHALATION BID #10.2 g 11/26/18 12/03/18 Rx mcg-4.5 mcg/actuation aerosol inhaler levothyroxine 25 mcg tablet 25 mcg PO DAILY #30 tab 11/26/18 12/03/18 Rx paroxetine 40 mg tablet 40 mg PO DAILY #30 tab 11/26/18 12/03/18 Rx risperidone 3 mg tablet 3 mg PO DAILY #30 tab 11/26/18 12/03/18 Rx ropinirole 0.5 mg tablet 0.5 mg PO HS #30 tab 11/26/18 12/03/18 Rx Albuterol Sulfate [Albuterol HFA 1 puff INHALATION Q4HP PRN 12/04/18 12/04/18 History Inhaler] hydrOXYzine pamoate [Vistaril] 25 mg PO BIDP PRN 12/04/18 12/04/18 History <David Lawrence - 12/04/18 14:09> Allergies Allergy/AdvReac Type Severity Reaction Status Date / Time ketorolac [From TORADOL] Allergy Severe S-SWELLS-OR Verified 06/13/18 13:13 AL/THROAT hydrocodone [From LORTAB] Allergy Unknown Verified 06/13/18 13:13 <David Lawrence - 12/04/18 14:09> Exam Vital signs and Labs for Last 24 Hours: Temp Pulse Resp BP Pulse Ox 99.4 F 118 H 18 121/61 95 12/04/18 12:00 12/04/18 12:00 12/04/18 12:00 12/04/18 12:00 12/04/18 12:00 Laboratory Results - last 24 hr 12/03/18 17:15: Magnesium 1.6 12/03/18 17:49: Specimen Source Right radial, O2 % room air, ABG pH 7.47 H, ABG pCO2 51.9 H, ABG pO2 43.7 L, ABG HCO3 36.8 H, ABG Total CO2 38.3 H, ABG O2 Saturation 84 L*, ABG Base Excess 13.1 H, Luiz Test Acceptable 12/03/18 17:50: WBC 13.1 H, RBC 5.10, Hgb 13.1, Hct 42.1, MCV 82.6, MCH 25.6 L, MCHC 31.0 L, RDW 13.4, Plt Count 675 H, MPV 7.0 L, Neut % (Auto) 72.7, Lymph % (Auto) 19.1, [place] % (Auto) 6.6, Eos % (Auto) 1.2, Baso % (Auto) 0.4, Neut # (Auto) 9.5 H, Lymph # (Auto) 2.5, [place] # (Auto) 0.9, Eos # (Auto) 0.2, Baso # (Auto) 0.1 12/03/18 17:50: Sodium 135 L, Potassium 3.4 L, Chloride 93 L, Carbon Dioxide 37 H, Anion Gap 8.4, BUN 7, Creatinine 0.62, Estimated Creat Clear 86, Estimated GFR 102, Est GFR ( Amer) 123, Glucose 100, Calcium 9.7, Total Bilirubin 0.3, AST 18, ALT 16, Alkaline Phosphatase 130 H, Total Protein 8.3 H D, Albumin 2.5 L, Globulin 5.8 H, Albumin/Globulin Ratio 0.4 L 12/03/18 17:50: Lactate 1.0 12/03/18 17:50: D-Dimer 1700 H* 12/03/18 17:50: Troponin I < 0.02 12/03/18 17:50: B-Natriuretic Peptide 43 12/03/18 19:31: Urine Color Yellow, Urine Appearance Clear, Urine pH 7.0, Ur Specific [place] 1.010, Urine Protein Negative, Urine Glucose (UA) Negative, Urine Ketones 1+, Urine Blood Negative, Urine Nitrate Negative, Urine Bilirubin Negative, Urine Urobilinogen 0.2, Ur Leukocyte Esterase Negative, Urine RBC 3-5, Urine WBC 5-10, Ur Squamous Epith Cells 5-10, Urine Bacteria 1+ 12/04/18 07:32: WBC 10.4, RBC 4.40, Hgb 11.2 L D, Hct 36.1 L, MCV 82.0, MCH 25.0 L, MCHC 30.5 L, RDW 13.6, Plt Count 589 H, MPV 7.2 L, Neut % (Auto) 84.7 H, Lymph % (Auto) 10.1, [place] % (Auto) 4.6, Eos % (Auto) 0.4, Baso % (Auto) 0.1, Neut # (Auto) 8.8 H, Lymph # (Auto) 1.1, [place] # (Auto) 0.5, Eos # (Auto) 0.1, Baso # (Auto) 0.0 12/04/18 07:32: Sodium 139, Potassium 3.0 L, Chloride 98, Carbon Dioxide 37 H, Anion Gap 7.0, BUN 6 L, Creatinine 0.62, Estimated Creat Clear 81, Estimated GFR 102, Est GFR ( Amer) 123, Glucose 133 H D, Calcium 9.2, Total Bilirubin 0.2, AST 16, ALT 13, Alkaline Phosphatase 104, Total Protein 7.0, Albumin 2.1 L D, Globulin 4.9 H, Albumin/Globulin Ratio 0.4 L <David Lawrence - 12/04/18 14:09> Temp Pulse Resp BP Pulse Ox 99.4 F 101 H 20 115/47 L 92 L 12/04/18 04:00 12/04/18 05:50 12/04/18 04:00 12/04/18 04:00 12/04/18 06:40 Laboratory Results - last 24 hr 12/03/18 17:15: Magnesium 1.6 12/03/18 17:49: Specimen Source Right radial, O2 % room air, ABG pH 7.47 H, ABG pCO2 51.9 H, ABG pO2 43.7 L, ABG HCO3 36.8 H, ABG Total CO2 38.3 H, ABG O2 Saturation 84 L*, ABG Base Excess 13.1 H, Luiz Test Acceptable 12/03/18 17:50: WBC 13.1 H, RBC 5.10, Hgb 13.1, Hct 42.1, MCV 82.6, MCH 25.6 L, MCHC 31.0 L, RDW 13.4, Plt Count 675 H, MPV 7.0 L, Neut % (Auto) 72.7, Lymph % (Auto) 19.1, [place] % (Auto) 6.6, Eos % (Auto) 1.2, Baso % (Auto) 0.4, Neut # (Auto) 9.5 H, Lymph # (Auto) 2.5, [place] # (Auto) 0.9, Eos # (Auto) 0.2, Baso # (Auto) 0.1 12/03/18 17:50: Sodium 135 L, Potassium 3.4 L, Chloride 93 L, Carbon Dioxide 37 H, Anion Gap 8.4, BUN 7, Creatinine 0.62, Estimated Creat Clear 86, Estimated GFR 102, Est GFR ( Amer) 123, Glucose 100, Calcium 9.7, Total Bilirubin 0.3, AST 18, ALT 16, Alkaline Phosphatase 130 H, Total Protein 8.3 H D, Albumin 2.5 L, Globulin 5.8 H, Albumin/Globulin Ratio 0.4 L 12/03/18 17:50: Lactate 1.0 12/03/18 17:50: D-Dimer 1700 H* 12/03/18 17:50: Troponin I < 0.02 12/03/18 17:50: B-Natriuretic Peptide 43 12/03/18 19:31: Urine Color Yellow, Urine Appearance Clear, Urine pH 7.0, Ur Specific [place] 1.010, Urine Protein Negative, Urine Glucose (UA) Negative, Urine Ketones 1+, Urine Blood Negative, Urine Nitrate Negative, Urine Bilirubin Negative, Urine Urobilinogen 0.2, Ur Leukocyte Esterase Negative, Urine RBC 3-5, Urine WBC 5-10, Ur Squamous Epith Cells 5-10, Urine Bacteria 1+ 12/04/18 07:32: WBC 10.4, RBC 4.40, Hgb 11.2 L D, Hct 36.1 L, MCV 82.0, MCH 25.0 L, MCHC 30.5 L, RDW 13.6, Plt Count 589 H, MPV 7.2 L, Neut % (Auto) 84.7 H, Lymph % (Auto) 10.1, [place] % (Auto) 4.6, Eos % (Auto) 0.4, Baso % (Auto) 0.1, Neut # (Auto) 8.8 H, Lymph # (Auto) 1.1, [place] # (Auto) 0.5, Eos # (Auto) 0.1, Baso # (Auto) 0.0 12/04/18 07:32: Sodium 139, Potassium 3.0 L, Chloride 98, Carbon Dioxide 37 H, Anion Gap 7.0, BUN 6 L, Creatinine 0.62, Estimated Creat Clear 81, Estimated GFR 102, Est GFR ( Amer) 123, Glucose 133 H D, Calcium 9.2, Total Bilirubin 0.2, AST 16, ALT 13, Alkaline Phosphatase 104, Total Protein 7.0, Albumin 2.1 L D, Globulin 4.9 H, Albumin/Globulin Ratio 0.4 L <Kilo Goldman - 12/04/18 09:00> I & O for Last 24 hours: Intake & Output 12/01/18 12/02/18 12/03/18 12/04/18 23:59 23:59 23:59 23:59 Intake Total 150 / 150 120 / 120 Balance 150 / 150 120 / 120 Weight 47.287 kg 47.287 kg <David Lawrence - 12/04/18 14:09> Intake & Output 09/14/12/02/18 12/03/18 12/04/18 23:59 23:59 23:59 23:59 Intake Total 150 / 150 Balance 150 / 150 Weight 104 lb 4 oz 104 lb 4 oz <Kilo Goldman 12/04/18 09:00> - Constitutional no acute distress <Kilo Goldman 12/04/18 09:11> - *Routine HEENT Exam Head: Present: normocephalic, atraumatic. Absent: hematoma, tenderness of temporal artery <Kilo Goldman 12/04/18 09:11> Eye: Present: EOMI, PERRL, normal accommodation. Absent: conjunctival icterus, periorbital tenderness <Kilo Goldman 12/04/18 09:11> ENT: Present: mucous membranes dry <JonesKilo 12/04/18 09:11> - *Routine Neck Exam Present: supple, full ROM. Absent: JVD, tenderness <Kilo Goldman 12/04/18 09:11> - *Routine Respiratory Exam Present: rales, rhonchi, wheezes <Remy Goldmanel 12/04/18 09:11> - *Routine Cardiovascular Exam Present: RRR. Absent: murmur <Remy Goldmanel 12/04/18 09:11> - *Routine Abdominal Exam Present: soft, normoactive bowel sounds. Absent: tenderness, firm <Kilo Goldman 12/04/18 09:11> - *Routine Extremities Exam Present: full ROM, pulses intact. Absent: cyanosis, calf tenderness <Remy Goldmanel 12/04/18 09:11> - Routine Back/Spine/Pelvis Exam Back/Spine: Present: full ROM. Absent: CVA tenderness <Remy Goldmanel 12/04/18 09:11> - *Routine Skin Exam Present: intact, normal turgor. Absent: cyanosis <Remy Goldmanel 12/04/18 09:11> - *Routine Neurological Exam Present: alert, oriented X3, CN II-XII intact. Absent: pronator drift, altered mental status <Kilo Goldman 12/04/18 09:11> - Routine Psychiatric Exam Present: normal affect. Absent: auditory hallucinations, visual hallucinations <Kilo Goldman - 12/04/18 09:11> H&P: Result - Impressions CT Abdomen and Pelvis w/contrast: 1. No acute intra-abdominal abnormality. CT PE Chest: 1. No evidence of pulmonary embolism to the segmental level. 2. There is interval development of diffuse tree in bud nodularity in the bilateral lungs, likely infections or inflammatory in etiology including atypical pneumonia. Interval resolution of the previously noted right upper lobe consolidation. 3. There are acute appearing, minimal displaced fractures of left posterior 11th and 1rth ribs. 4. Enlarged central pulmonary arteries can be seen with pulmonary hypertension. Main pulmonary artery measures 4.6 cm, which is unchanged from prior exam 5. Mild mediastinal adenopathy is unchanged. (Per Dr. Landaverde) <Kilo Goldman - 12/04/18 09:21> Assessment and Plan (1) Acute exacerbation of chronic obstructive pulmonary disease (COPD) Current visit: Yes Status: Acute Category: Medical Code(s): J44.1 - Chronic obstructive pulmonary disease with (acute) exacerbation (2) Elevated d-dimer Current visit: Yes Status: Acute Category: Medical Code(s): R79.89 - Other specified abnormal findings of blood chemistry (3) Pneumonia Current visit: Yes Status: Acute Qualifiers: Pneumonia type: due to unspecified organism Laterality: left Lung location: lower lobe of lung Qualified Code(s): J18.1 - Lobar pneumonia, unspecified organism Category: Medical Code(s): J18.9 - Pneumonia, unspecified organism (4) Sepsis Current visit: Yes Status: Acute Qualifiers: Sepsis type: sepsis due to unspecified organism Sepsis acute organ dysfunction status: unspecified Qualified Code(s): A41.9 - Sepsis, unspecified organism Category: Medical Code(s): A41.9 - Sepsis, unspecified organism <Kilo Goldman - 12/04/18 09:22> (1) Acute exacerbation of chronic obstructive pulmonary disease (COPD) Current visit: Yes Status: Acute Category: Medical Code(s): J44.1 - Chronic obstructive pulmonary disease with (acute) exacerbation (2) Elevated d-dimer Current visit: Yes Status: Acute Category: Medical Code(s): R79.89 - Other specified abnormal findings of blood chemistry (3) Pneumonia Current visit: Yes Status: Acute Qualifiers: Pneumonia type: due to unspecified organism Laterality: left Lung location: lower lobe of lung Qualified Code(s): J18.1 - Lobar pneumonia, unspecified organism Category: Medical Code(s): J18.9 - Pneumonia, unspecified organism (4) Sepsis Current visit: Yes Status: Acute Qualifiers: Sepsis type: sepsis due to unspecified organism Sepsis acute organ dysfunction status: unspecified Qualified Code(s): A41.9 - Sepsis, unspecified organism Category: Medical Code(s): A41.9 - Sepsis, unspecified organism <David Lawrence - 12/04/18 14:09> - Assessment and plan all Dx Assessment and Plan for all problems:: Rounded with Dr. Lawrence, all orders per Dr. Lawrence. 1. Sputum culture 2. Breathing treatments every 6 hours and every 2 as needed 3. Await HIV results 4. Regular diet <Kilo Goldman - 12/04/18 09:25>
--- NOTE | 2018-12-04 16:05 | Electrocardiograph Report ---
APPROVED REPORT Exam: Resting ECG HR:98 bpm ECG Measurements Heart Rate 98 AXES AR 132 P 82 QRSd 96 QRS 91 QT 384 T79 QTc 490 <Conclusion> Normal sinus rhythm Right atrial enlargement Rightward axis Pulmonary disease pattern Incomplete RBBB Nonspecific ST abnormality Prolonged QT Abnormal ECG Electronically signed by : Yassine Kelly, 12/04/2018 16:05:23
[2018-12-05 07:11] LABS: Eosinophils % 0.1 % (0.1-12.0); Hematocrit 35.6 % (37.0-47.0); Hemoglobin 10.9 g/dL (12.2-16.2); Lymphocytes # 1.4 K/mm3 (0.7-4.5); Lymphocytes % 6.1 % (10-50); Mean Corpuscular HGB Conc 30.5 g/dL (31.8-35.4); Mean Corpuscular Volume 82.5 fl (81-99); Mean Platelet Volume 6.8 fl (7.4-10.4); Monocytes % 4.4 % (1.7-9.3); Neutrophils # 19.9 K/mm3 (1.8-7.8); Neutrophils % 89.4 % (37.0-80.0); Platelet Count 596 K/mm3 (142-424); Red Blood Count 4.32 M/mm3 (4.20-5.40); Red Cell Distribution Width 13.8 % (11.5-17.5); White Blood Count 22.2 K/mm3 (4.8-10.8)
[2018-12-05 07:24] LABS: Anion Gap 7.4 mEq/L (5-15); Calcium 9.3 mg/dL (8.5-10.1)
[2018-12-05 07:50] LABS: Lymphocytes % 6 % (10-50); Monocytes % 4 % (2-9); Neutrophils % 88 % (42-76); Total Cells Counted 100
--- NOTE | 2018-12-05 08:15 | Progress Note ---
Internal Medicine - PN: Subj *Date: 12/05/18 *Time: 08:13 Interval history: Patient feels better this morning. Sleeping well, states she had a good breakfast. Exam Vital signs and Labs for Last 24 Hours: Temp Pulse Resp BP Pulse Ox 98.6 F 104 H 17 140/84 98 12/05/18 08:00 12/05/18 08:00 12/05/18 08:00 12/05/18 08:00 12/05/18 08:00 Laboratory Results - last 24 hr 12/04/18 07:32: WBC 10.4, RBC 4.40, Hgb 11.2 L D, Hct 36.1 L, MCV 82.0, MCH 25.0 L, MCHC 30.5 L, RDW 13.6, Plt Count 589 H, MPV 7.2 L, Neut % (Auto) 84.7 H, Lymph % (Auto) 10.1, [place] % (Auto) 4.6, Eos % (Auto) 0.4, Baso % (Auto) 0.1, Neut # (Auto) 8.8 H, Lymph # (Auto) 1.1, [place] # (Auto) 0.5, Eos # (Auto) 0.1, Baso # (Auto) 0.0 12/04/18 07:32: Sodium 139, Potassium 3.0 L, Chloride 98, Carbon Dioxide 37 H, Anion Gap 7.0, BUN 6 L, Creatinine 0.62, Estimated Creat Clear 81, Estimated GFR 102, Est GFR ( Amer) 123, Glucose 133 H D, Calcium 9.2, Total Bilirubin 0.2, AST 16, ALT 13, Alkaline Phosphatase 104, Total Protein 7.0, Albumin 2.1 L D, Globulin 4.9 H, Albumin/Globulin Ratio 0.4 L 12/05/18 06:30: WBC 22.2 H* D, RBC 4.32, Hgb 10.9 L, Hct 35.6 L, MCV 82.5, MCH 25.2 L, MCHC 30.5 L, RDW 13.8, Plt Count 596 H, MPV 6.8 L, Neut % (Auto) 89.4 H, Lymph % (Auto) 6.1 L, [place] % (Auto) 4.4, Eos % (Auto) 0.1, Baso % (Auto) 0.0 L, Neut # (Auto) 19.9 H, Lymph # (Auto) 1.4, [place] # (Auto) 1.0, Eos # (Auto) 0.0, Baso # (Auto) 0.0, Total Counted 100, Neutrophils % (Manual) 88 H, Band Neutrophils % 2.0, Lymphocytes % (Manual) 6 L, Monocytes % (Manual) 4, Platelet Estimate Marked increase 12/05/18 06:30: Sodium 141, Potassium 3.4 L, Chloride 100, Carbon Dioxide 37 H, Anion Gap 7.4, BUN 12 D, Creatinine 0.63, Estimated Creat Clear 81, Estimated GFR 100, Est GFR ( Amer) 121, Glucose 127 H, Calcium 9.3 I & O for Last 24 hours: Intake & Output 12/02/18 12/03/18 12/04/18 12/05/18 11:59 11:59 11:59 11:59 Intake Total 150 / 150 924 / 924 Balance 150 / 150 924 / 924 Weight 104 lb 4 oz 105 lb 4 oz Microbiology Reports for the Last 24 Hours: Microbiology 12/04/18 18:25 Sputum - Expectorated Sputum Gram Stain - Final Narrative: On exam is alert, pleasant. Able to sit up under her own power, less dyspneic than recorded yesterday. Oropharynx clear, no JVD. Heart rate regular. Lungs have better air entry than recorded yesterday, expiratory wheezing and crackles in the bases, especially on the right side. No edema or clubbing. Good distal perfusion. Abdomen soft and nontender. Assessment and Plan (1) Acute exacerbation of chronic obstructive pulmonary disease (COPD) Current visit: Yes Status: Acute Category: Medical Code(s): J44.1 - Chronic obstructive pulmonary disease with (acute) exacerbation (2) Elevated d-dimer Current visit: Yes Status: Acute Category: Medical Code(s): R79.89 - Other specified abnormal findings of blood chemistry (3) Pneumonia Current visit: Yes Status: Acute Qualifiers: Pneumonia type: due to unspecified organism Laterality: left Lung location: lower lobe of lung Qualified Code(s): J18.1 - Lobar pneumonia, unspecified organism Category: Medical Code(s): J18.9 - Pneumonia, unspecified organism (4) Sepsis Current visit: Yes Status: Acute Qualifiers: Sepsis type: sepsis due to unspecified organism Sepsis acute organ dysfunction status: unspecified Qualified Code(s): A41.9 - Sepsis, unspecified organism Category: Medical Code(s): A41.9 - Sepsis, unspecified organism - Assessment and plan all Dx Assessment and Plan for all problems:: Overall improving. Unusual CT appearance. HIV serologies pending. Sputum cultures initially showed gram-positive diplococci, await final report. Plan for discharge tomorrow when the final culture and serologies are back.
[2018-12-06 06:12] LABS: HIV Screen 4th Generation wRfx Non Reactive (Non Reactive)
[2018-12-06 08:02] LABS: Basophils % 0.1 % (0.1-2.0); Eosinophils % 0.1 % (0.1-12.0); Hematocrit 34.4 % (37.0-47.0); Hemoglobin 10.4 g/dL (12.2-16.2); Lymphocytes # 1.3 K/mm3 (0.7-4.5); Lymphocytes % 8.4 % (10-50); Mean Corpuscular HGB Conc 30.4 g/dL (31.8-35.4); Mean Corpuscular Volume 83.1 fl (81-99); Mean Platelet Volume 6.6 fl (7.4-10.4); Monocytes # 0.4 K/mm3 (0.1-1.0); Monocytes % 2.7 % (1.7-9.3); Neutrophils # 13.9 K/mm3 (1.8-7.8); Neutrophils % 88.6 % (37.0-80.0); Platelet Count 544 K/mm3 (142-424); Red Blood Count 4.14 M/mm3 (4.20-5.40); Red Cell Distribution Width 13.8 % (11.5-17.5); White Blood Count 15.7 K/mm3 (4.8-10.8)
[2018-12-06 08:10] LABS: Albumin Level 2.1 gm/dL (3.4-5.0); Albumin/Globulin Ratio 0.5 (1.1-1.8); Anion Gap 5.4 mEq/L (5-15); Bilirubin,Total 0.2 mg/dL (0.2-1.0); Calcium 8.9 mg/dL (8.5-10.1); Globulin 4.3 gm/dl (1.3-3.2); Total Protein,Serum 6.4 gm/dL (6.4-8.2)
[2018-12-06 08:46] LABS: Lymphocytes % 8 % (10-50); Monocytes % 3 % (2-9); Neutrophils % 87 % (42-76); Total Cells Counted 100
[2018-12-06 08:47] LABS: Hypochromasia 1+
--- NOTE | 2018-12-06 09:16 | Progress Note ---
Internal Medicine - PN: Subj *Date: 12/06/18 *Time: 09:15 Exam Vital signs and Labs for Last 24 Hours: Temp Pulse Resp BP Pulse Ox 98.6 F 95 H 20 140/75 89 L 12/06/18 08:00 12/06/18 08:00 12/06/18 03:39 12/06/18 08:00 12/06/18 08:00 Laboratory Results - last 24 hr 12/03/18 21:15: HIV 1&2 Ag/Ab, 4th Gen Non reactive 12/05/18 21:30: Stl Aeromonas (PCR) Not detected, Stl C. cayetanensis PCR Not detected, Stool Rotavirus (PCR) Not detected, Stl Adenov F 40/41 PCR Not detected, Stool Astrovirus (PCR) Not detected, Stool Campylobacter PCR Detected A, Stl C.difficile Tox PCR Not detected, Stool Cryptosporidium PCR Not detected, Stl E.coli Shiga Tox PCR Not detected, Stool E coli O157 PCR Not detected, Stl Enterotoxigenic E PCR Not detected, Stool EPEC (PCR) Not detected, Stool EAEC (PCR) Not detected, Stl E. histolytica PCR Not detected, Stool Giardia Lamblia PCR Not detected, Stool Salmonella PCR Not detected, Stool Sapovirus (PCR) Not detected, Stl P. shigelloides PCR Not detected, Stl Shigella/EIEC PCR Not detected, St Y.enterocolitica PCR Not detected, Stool Vibrio (PCR) Not detected, Stl Vibrio cholerae PCR Not detected, Stl Norovirus GI/GII PCR Not detected 12/06/18 07:45: WBC 15.7 H D, RBC 4.14 L, Hgb 10.4 L, Hct 34.4 L, MCV 83.1, MCH 25.2 L, MCHC 30.4 L, RDW 13.8, Plt Count 544 H, MPV 6.6 L, Neut % (Auto) 88.6 H, Lymph % (Auto) 8.4 L, [place] % (Auto) 2.7, Eos % (Auto) 0.1, Baso % (Auto) 0.1, Neut # (Auto) 13.9 H, Lymph # (Auto) 1.3, [place] # (Auto) 0.4, Eos # (Auto) 0.0, Baso # (Auto) 0.0, Total Counted 100, Neutrophils % (Manual) 87 H, Band Neutrophils % 2.0, Lymphocytes % (Manual) 8 L, Monocytes % (Manual) 3, Platelet Estimate Marked increase, Hypochromasia 1+ 12/06/18 07:45: Sodium 134 L, Potassium 3.4 L, Chloride 96 L, Carbon Dioxide 36 H, Anion Gap 5.4, BUN 14, Creatinine 0.58, Estimated Creat Clear 90, Estimated GFR 110, Est GFR ( Amer) 133, Glucose 120 H, Calcium 8.9, Total Bilirubin 0.2, AST 15, ALT 14, Alkaline Phosphatase 90, Total Protein 6.4, Albumin 2.1 L, Globulin 4.3 H, Albumin/Globulin Ratio 0.5 L I & O for Last 24 hours: Intake & Output 12/03/18 12/04/18 12/05/18 12/06/18 23:59 23:59 23:59 23:59 Intake Total 150 / 150 564 / 564 1320 / 1835 995 / 995 Balance 150 / 150 564 / 564 1320 / 1835 995 / 995 Weight 47.287 kg 47.287 kg 47.741 kg 48.988 kg Microbiology Reports for the Last 24 Hours: Microbiology 12/03/18 17:50 Blood Blood Culture - Preliminary NO GROWTH AFTER 48 HOURS 12/03/18 17:50 Blood Blood Culture - Preliminary NO GROWTH AFTER 48 HOURS Assessment and Plan (1) Acute exacerbation of chronic obstructive pulmonary disease (COPD) Current visit: Yes Status: Acute Category: Medical Code(s): J44.1 - Chronic obstructive pulmonary disease with (acute) exacerbation (2) Elevated d-dimer Current visit: Yes Status: Acute Category: Medical Code(s): R79.89 - Other specified abnormal findings of blood chemistry (3) Pneumonia Current visit: Yes Status: Acute Qualifiers: Pneumonia type: due to unspecified organism Laterality: left Lung location: lower lobe of lung Qualified Code(s): J18.1 - Lobar pneumonia, unspecified organism Category: Medical Code(s): J18.9 - Pneumonia, unspecified organism (4) Sepsis Current visit: Yes Status: Acute Qualifiers: Sepsis type: sepsis due to unspecified organism Sepsis acute organ dysfunction status: unspecified Qualified Code(s): A41.9 - Sepsis, unspecified organism Category: Medical Code(s): A41.9 - Sepsis, unspecified organism The patient's infection will respond to the chosen ABx?: Yes Is the patient receiving the right drug, dose, and route?: Yes Could a more targeted ABx be ordered?: No (AWAITING CULTURE RESULTS, WBC DOWN, AFEBRILE)
--- NOTE | 2018-12-06 12:42 | Progress Note ---
Internal Medicine - PN: Subj *Date: 12/06/18 *Time: 13:16 Interval history: 48-year-old female patient lying in bed sleeping quietly, awakens to verbal stimuli. Respirations easy, patient reports she is feeling better today and yesterday. Currently on room air, room air sats 91%. Explained to patient still waiting on results from sputum culture, we will keep her updated. Campylobacter is positive in stool, patient denies any abdominal pain, nausea or vomiting recently before admission Exam Vital signs and Labs for Last 24 Hours: Temp Pulse Resp BP Pulse Ox 97.9 F 110 H 18 132/70 92 L 12/06/18 11:28 12/06/18 11:28 12/06/18 11:28 12/06/18 11:28 12/06/18 11:28 Laboratory Results - last 24 hr 12/03/18 21:15: HIV 1&2 Ag/Ab, 4th Gen Non reactive 12/05/18 21:30: Stl Aeromonas (PCR) Not detected, Stl C. cayetanensis PCR Not detected, Stool Rotavirus (PCR) Not detected, Stl Adenov F 40/41 PCR Not detected, Stool Astrovirus (PCR) Not detected, Stool Campylobacter PCR Detected A, Stl C.difficile Tox PCR Not detected, Stool Cryptosporidium PCR Not detected, Stl E.coli Shiga Tox PCR Not detected, Stool E coli O157 PCR Not detected, Stl Enterotoxigenic E PCR Not detected, Stool EPEC (PCR) Not detected, Stool EAEC (PCR) Not detected, Stl E. histolytica PCR Not detected, Stool Giardia Lamblia PCR Not detected, Stool Salmonella PCR Not detected, Stool Sapovirus (PCR) Not detected, Stl P. shigelloides PCR Not detected, Stl Shigella/EIEC PCR Not detected, St Y.enterocolitica PCR Not detected, Stool Vibrio (PCR) Not detected, Stl Vibrio cholerae PCR Not detected, Stl Norovirus GI/GII PCR Not detected 12/06/18 07:45: WBC 15.7 H D, RBC 4.14 L, Hgb 10.4 L, Hct 34.4 L, MCV 83.1, MCH 25.2 L, MCHC 30.4 L, RDW 13.8, Plt Count 544 H, MPV 6.6 L, Neut % (Auto) 88.6 H, Lymph % (Auto) 8.4 L, [place] % (Auto) 2.7, Eos % (Auto) 0.1, Baso % (Auto) 0.1, Neut # (Auto) 13.9 H, Lymph # (Auto) 1.3, [place] # (Auto) 0.4, Eos # (Auto) 0.0, Baso # (Auto) 0.0, Total Counted 100, Neutrophils % (Manual) 87 H, Band Neutrophils % 2.0, Lymphocytes % (Manual) 8 L, Monocytes % (Manual) 3, Platelet Estimate Marked increase, Hypochromasia 1+ 12/06/18 07:45: Sodium 134 L, Potassium 3.4 L, Chloride 96 L, Carbon Dioxide 36 H, Anion Gap 5.4, BUN 14, Creatinine 0.58, Estimated Creat Clear 90, Estimated GFR 110, Est GFR ( Amer) 133, Glucose 120 H, Calcium 8.9, Total Bilirubin 0.2, AST 15, ALT 14, Alkaline Phosphatase 90, Total Protein 6.4, Albumin 2.1 L, Globulin 4.3 H, Albumin/Globulin Ratio 0.5 L I & O for Last 24 hours: Intake & Output 12/03/18 12/04/18 12/05/18 12/06/18 23:59 23:59 23:59 23:59 Intake Total 150 / 150 564 / 564 1320 / 1835 995 / 995 Balance 150 / 150 564 / 564 1320 / 1835 995 / 995 Weight 104 lb 4 oz 104 lb 4 oz 105 lb 4.014 oz 108 lb Microbiology Reports for the Last 24 Hours: Microbiology 12/03/18 17:50 Blood Blood Culture - Preliminary NO GROWTH AFTER 48 HOURS 12/03/18 17:50 Blood Blood Culture - Preliminary NO GROWTH AFTER 48 HOURS - Constitutional no acute distress, thin - *Routine HEENT Exam Head: Present: normocephalic, atraumatic. Absent: scalp tenderness, tenderness of temporal artery Eye: Present: EOMI, PERRL, normal accommodation. Absent: conjunctival icterus, periorbital swelling ENT: Present: mucous membranes dry - *Routine Neck Exam Present: supple, full ROM. Absent: JVD, tenderness - *Routine Respiratory Exam Present: rhonchi, wheezes - *Routine Cardiovascular Exam Present: RRR, murmur - *Routine Abdominal Exam Present: soft, normoactive bowel sounds. Absent: tenderness, firm - *Routine Extremities Exam Present: full ROM, pulses intact. Absent: cyanosis, calf tenderness - Routine Back/Spine/Pelvis Exam Back/Spine: Present: full ROM. Absent: CVA tenderness, pain with rotation - *Routine Skin Exam Present: intact. Absent: cyanosis, rash - *Routine Neurological Exam Present: alert, oriented X3, CN II-XII intact, moving all extremities, normal speech. Absent: motor deficit, altered mental status - Routine Psychiatric Exam Present: normal affect, normal thought process. Absent: auditory hallucinations, visual hallucinations Assessment and Plan (1) Acute exacerbation of chronic obstructive pulmonary disease (COPD) Current visit: Yes Status: Acute Category: Medical Code(s): J44.1 - Chronic obstructive pulmonary disease with (acute) exacerbation (2) Elevated d-dimer Current visit: Yes Status: Acute Category: Medical Code(s): R79.89 - Other specified abnormal findings of blood chemistry (3) Pneumonia Current visit: Yes Status: Acute Qualifiers: Pneumonia type: due to unspecified organism Laterality: left Lung location: lower lobe of lung Qualified Code(s): J18.1 - Lobar pneumonia, unspecified organism Category: Medical Code(s): J18.9 - Pneumonia, unspecified organism (4) Sepsis Current visit: Yes Status: Acute Qualifiers: Sepsis type: sepsis due to unspecified organism Sepsis acute organ dysfunc tion status: unspecified Qualified Code(s): A41.9 - Sepsis, unspecified organism Category: Medical Code(s): A41.9 - Sepsis, unspecified organism (5) Heart murmur Current visit: No Status: Chronic Category: Medical Code(s): R01.1 - Cardiac murmur, unspecified - Assessment and plan all Dx Assessment and Plan for all problems:: Dr. Ignacio will round on patient in the afternoon 1. Awaiting sputum culture results 2. Campylobacter in stool, will closely monitor Is the patient receiving the right drug, dose, and route?: Yes Could a more targeted ABx be ordered?: No
--- NOTE | 2018-12-07 14:59 | Discharge Summary ---
General - General Admission date:: 12/03/18 Discharge date: 12/07/18 HPI HPI: Rounded with nurse practitioner. Agree with exam findings and care plan as documented. Hospital Course Hospital Course: pt has did better with ivf and abx and has o2 at home and pt zuleika diet and ambulation with stable labs and exam Objective Vital signs: Temp Pulse Resp BP Pulse Ox 98.5 F 90 20 142/74 H 86 L 12/07/18 11:08 12/07/18 12:00 12/07/18 11:08 12/07/18 11:08 12/07/18 11:08 no acute distress, thin - *Routine HEENT Exam Head: Present: normocephalic Eye: Present: EOMI, PERRL ENT: Present: mucous membranes dry - *Routine Neck Exam Present: supple. Absent: JVD - *Routine Respiratory Exam Present: CTA bilaterally - *Routine Cardiovascular Exam Present: RRR, murmur. Absent: gallop, rubs - *Routine Abdominal Exam Present: soft - *Routine Extremities Exam Present: full ROM. Absent: calf tenderness - *Routine Skin Exam Present: intact - *Routine Neurological Exam Present: alert, oriented X3, CN II-XII intact - Routine Psychiatric Exam Present: normal affect Results Labs on day of discharge: Preliminary micro results at discharge 12/04/18 18:25 Sputum Culture - Preliminary Sputum - Expectorated Sputum 12/03/18 17:50 Blood Culture - Preliminary Blood NO GROWTH AFTER 48 HOURS 12/03/18 17:50 Blood Culture - Preliminary Blood NO GROWTH AFTER 48 HOURS DS: Diagnosis - Discharge Diagnosis (1) Acute exacerbation of chronic obstructive pulmonary disease (COPD) Status: Acute (2) Elevated d-dimer Status: Acute (3) Pneumonia Status: Acute (4) Sepsis Status: Acute (5) Heart murmur Status: Chronic (6) Campylobacter enteritis Status: Acute (7) Rib fractures Status: Acute Discharge Plan - Patient Discharge Instructions ACTIVITY: Continue current activity DIET: continue same diet Patient Instructions: Pneumonia-Adult, Chronic Obstructive Pulmonary Disease, Pneumococcal Vaccine, DI for Chronic Obstructive Pulmonary Disease, DI for Pneumonia -- Adult, DI for Sepsis -- Adult, DI for Respiratory Failure, Respiratory Failure - Follow up Plan Follow up with: Herman Ignacio MD [Staff Physician] - Home Medications: Home Medications Medication Instructions Recorded Confirmed Type Nicotine [Nicoderm 21mg/24hr 21 mg TD DAILY 06/01/18 12/03/18 History patch] budesonide-formoterol HFA 80 2 puff INHALATION BID #10.2 g 11/26/18 12/03/18 Rx mcg-4.5 mcg/actuation aerosol inhaler levothyroxine 25 mcg tablet 25 mcg PO DAILY #30 tab 11/26/18 12/03/18 Rx paroxetine 40 mg tablet 40 mg PO DAILY #30 tab 11/26/18 12/03/18 Rx risperidone 3 mg tablet 3 mg PO DAILY #30 tab 11/26/18 12/03/18 Rx ropinirole 0.5 mg tablet 0.5 mg PO HS #30 tab 11/26/18 12/03/18 Rx Albuterol Sulfate [Albuterol HFA 1 puff INHALATION Q4HP PRN 12/04/18 12/04/18 History Inhaler] hydrOXYzine pamoate [Vistaril] 25 mg PO BIDP PRN 12/04/18 12/04/18 History Azithromycin [Zithromax 250mg 250 mg PO DIRECTED #6 tab 12/07/18 Rx tab] Azithromycin [Zithromax 250mg 250 mg PO DIRECTED #6 tab 12/07/18 Rx tab] predniSONE [Prednisone 20mg 20 mg PO BID #10 tab 12/07/18 Rx Tab] predniSONE [Prednisone 20mg 20 mg PO BID #10 tab 12/07/18 Rx Tab] Prescriptions/Medication Reconciliation: New Ropinirole HCl [Requip 0.25mg Tablet] 0.5 mg PO HS tablet risperiDONE [Risperdal 1mg Tablet] 3 mg PO DAILY tablet Levothyroxine Sodium [Synthroid 25mcg (0.025mg) tablet] 25 mcg PO DAILYDM tablet Azithromycin [Zithromax 250mg tab] 250 mg PO DIRECTED #6 tab PARoxetine HCl [Paxil 20mg Tablet] 40 mg PO DAILY tablet predniSONE [Prednisone 20mg Tab] 20 mg PO BID #10 tab Azithromycin [Zithromax 250mg tab] 250 mg PO DIRECTED #6 tab predniSONE [Prednisone 20mg Tab] 20 mg PO BID #10 tab Continued budesonide-formoterol HFA 80 mcg-4.5 mcg/actuation aerosol inhaler 2 puff INHALATION BID #10.2 g levothyroxine 25 mcg tablet 25 mcg PO DAILY #30 tab risperidone 3 mg tablet 3 mg PO DAILY #30 tab ropinirole 0.5 mg tablet 0.5 mg PO HS #30 tab paroxetine 40 mg tablet 40 mg PO DAILY #30 tab Nicotine [Nicoderm 21mg/24hr patch] 21 mg TD DAILY hydrOXYzine pamoate [Vistaril] 25 mg PO BIDP PRN PRN Reason: anxiety Albuterol Sulfate [Albuterol HFA Inhaler] 1 puff INHALATION Q4HP PRN PRN Reason: Shortness Of Breath - Problem Reconciliation Problems Reviewed?: Yes
== END 2018-12-07 16:20 | disposition home or self-care (01) | DRG 190 ==
LOC: ER 17:24 → 2ND 17:24 → OBSVTOIN 20:22 → 2ND 20:23
PROVIDERS: ADMIT Internal Medicine Adolescent Medicine; ATTEND Internal Medicine Adolescent Medicine
CPT/HCPCS: 36415; 71020; 71046; 71275; 74177; 80048; 80053; 81001; 82803; 83605; 83735; 83880; 84484; 85007; 85025; 85378; 86703; 87040; 87070; 87205; 87507; 94640; 94761; 96367; 96374; 96375; 99285; G0432; J0456; J0692; J2405; J2543; Q9967

== ENCOUNTER → 2020-01-23 17:57 | Outpatient (CLI) | payer MEDICAID, SELFPAY ==
[2020-01-23 19:29] LABS: Basophils # 0.1 K/mm3 (0-0.2); Basophils % 0.8 % (0.1-2.0); Eosinophils # 0.3 K/mm3 (0.0-0.4); Eosinophils % 2.7 % (0.1-12.0); Hemoglobin 14.9 g/dL (12.2-16.2); Lymphocytes # 2.2 K/mm3 (0.7-4.5); Lymphocytes % 21.8 % (10-50); Mean Corpuscular HGB Conc 31.6 g/dL (31.8-35.4); Mean Corpuscular Hemoglobin 26.6 pg (27.0-31.2); Mean Corpuscular Volume 84.1 fl (81-99); Mean Platelet Volume 8.9 fl (7.4-10.4); Monocytes # 0.6 K/mm3 (0.1-1.0); Monocytes % 5.8 % (1.7-9.3); Neutrophils # 6.9 K/mm3 (1.8-7.8); Neutrophils % 68.9 % (37.0-80.0); Platelet Count 393 K/mm3 (142-424); Red Blood Count 5.59 M/mm3 (4.20-5.40); White Blood Count 10.1 K/mm3 (4.8-10.8)
[2020-01-23 19:33] LABS: Chloride 105 mmol/L (98-107); Potassium 4.2 mmoL/L (3.5-5.1); Sodium 139 mmol/L (136-145)
[2020-01-23 19:35] LABS: Alanine Aminotransferase 13 U/L (12-78); Aspartate Amino Transferase 27 U/L (14-36); Blood Urea Nitrogen 17 mg/dl (7-17); Estimated Glomerular Filt Rate 58 ml/min (>60); GFR (African American) 71 ML/MIN (>60)
[2020-01-23 19:36] LABS: Albumin Level 4.3 g/dl (3.5-5.0); Albumin/Globulin Ratio 1.2 (1.1-1.8); Alkaline Phosphatase 94 U/L (38-126); Anion Gap 12.2 mEq/L (5-15); Bilirubin,Total 0.2 mg/dl (0.2-1.3); Calcium 10.2 mg/dl (8.4-10.2); Carbon Dioxide 26 mmol/L (22.0-30.0); Chol/HDL Ratio 2.2 (1-3.5); Cholesterol 164 mg/dl (140-200); Globulin 3.5 g/dL (1.3-3.2); Glucose 98 mg/dl (74-100); HDL Cholesterol 75 mg/dl (40-60); Total Protein,Serum 7.8 g/dl (6.3-8.2); Triglycerides 211 mg/dl (30-150); VLDL Cholesterol 42 mg/dL (0-40)
[2020-01-23 19:47] LABS: Direct LDL Cholesterol 54.42 mg/dL (100-129)
[2020-01-23 19:52] LABS: 25-OH Vitamin D, Total 26.7 ng/mL (30-100); T4 (Thyroxine) 8.6 ug/dl (5.53-11.0)
[2020-01-23 20:06] LABS: Thyroid Stimulating Hormone 1.88 uIU/mL (0.465-4.68)
[2020-01-23 20:15] LABS: Hemoglobin A1C 5.4 % (4.0-6.0)
== END ==
PROVIDERS: Visit Provider Nurse Practitioner Family
DX: J43.9 Emphysema, unspecified (principal); J44.1 Chronic obstructive pulmonary disease with (acute) exacerbation; R53.83 Other fatigue; E55.9 Vitamin D deficiency, unspecified
CPT/HCPCS: 80053; 80061; 82306; 83036; 84436; 84443; 85025

== ENCOUNTER 2021-03-16 12:15 | Emergency (ER) | payer MEDICAID, SELFPAY ==
[2021-03-16 12:16] VITALS: BP 128/76; PULSE 87; RESP 18; TEMP 36.8; O2SAT 98; BMI 22.8
--- NOTE | 2021-03-16 12:40 | HMH.EDGENADL ---
ED Disposition Clinical Impression: Scabies exposure Conjunctivitis Qualifiers: Conjunctivitis type: acute Acute conjunctivitis type: unspecified Laterality: left Qualified Code(s): H10.32 - Unspecified acute conjunctivitis, left eye Disposition: Home, Self-Care Condition on Discharge: Good Instructions: Scabies, Conjunctivitis Additional Instructions: follow up with a PCP, return for any concerns Prescriptions: Erythromycin Base [Erythromycin 3.5gm opth oinment] 3.5 gm OP TID 7 Days #3.5 gm Transmission Status: Received by [facility] #[id number] Permethrin 60 gm TP ONCE 1 Days #60 gm Transmission Status: Received by [facility] Referrals: Carmen Arauz APRN [Primary Care Provider] - Bhanu Abdul [facility] [Other] - Critical Care Critical Care Time: No Attestation: On , the high probability of a clinically significant, sudden or life threatening deterioration of the following system(s) required my full and direct attention, intervention and personal management. The time I documented below is in addition to time spent performing reported procedures but includes the following listed in this critical care notation. Medical Decision Making - Medical Records Medical records reviewed: Yes: I reviewed the patient's medical records. - Dionte Inquiry Pt receiving controlled substance: No Vital Signs: 03/16/21 12:16 03/16/21 14:39 Temperature 98.2 F 98 F Temperature Source Oral Oral Pulse Rate 78 Pulse Rate [Right Radial] 87 Respiratory Rate 18 16 Blood Pressure 123/74 Blood Pressure [Right Arm] 128/76 Blood Pressure Mean [Right Arm] 93 Blood Pressure Source [Right Arm] Automatic Cuff Blood Pressure Position Sitting Blood Pressure Position [Right Arm] Sitting 02 Sat by Pulse Oximetry 98 Oxygen Delivery Method Room Air Room Air Orders (Tests/Meds): ED MEDICATIONS Discontinued Medications Generic Name Dose Route Start Last Admin Trade Name Freq PRN Reason Stop Dose Admin Erythromycin 0 gm 03/16/21 17:00 03/16/21 13:28 Erythromycin Base 3.5 Gm Oint...G. OP 04/15/21 16:59 0.5 mg QID KAREN Administration General Adult HPI - General Chief complaint: Eye Problems Stated complaint: red eye with pain Time Seen by Provider: 03/16/21 13:00 Mode of Arrival: Ambulatory Limitations: No Limitations Description of Symptoms (Recalled from ER Triage Doc. by RN): Pt c/o redness to her left eye since yesterday. Pt states that her and her have scabies and that they have went into her eye - History of Present Illness HPI narrative: says she has scabies and now has rt eye redness Onset (ago): day(s) Radiation: non-radiation Severity: moderate Consistency: constant Relieving factors: none Exacerbating factors: none Associated symptoms: denies other symptoms - Related Data Home Medications Medication Instructions Recorded Confirmed Nicotine [Nicoderm 21mg/24hr 21 mg TD DAILY 06/01/18 08/12/20 patch] Previous Rx's Medication Instructions Recorded ergocalciferol (vitamin D2) 1,250 50,000 unit PO QWEEK #4 cap 01/26/20 mcg (50,000 unit) capsule albuterol sulfate 90 mcg/actuation 1 puff INHALATION Q4HP PRN #18 g 08/12/20 aerosol inhaler budesonide-formoterol HFA 80 2 puff INHALATION BID #10.2 g 02/28/21 mcg-4.5 mcg/actuation aerosol inhaler hydroxyzine pamoate 25 mg capsule See Rx Instructions .ROUTE 02/28/21 .COMPLEX #60 cap levothyroxine 25 mcg tablet 25 mcg PO DAILY 30 Days #30 tab 02/28/21 paroxetine HCl 40 mg tablet See Rx Instructions .ROUTE 02/28/21 .COMPLEX #30 tab risperidone 3 mg tablet See Rx Instructions .ROUTE 02/28/21 .COMPLEX #90 tab ropinirole 0.5 mg tablet 0.5 mg PO HS #90 tab 02/28/21 Erythromycin Base [Erythromycin 3.5 gm OP TID 7 Days #3.5 gm 03/16/21 3.5gm opth oinment] Permethrin 60 gm TP ONCE 1 Days #60 gm 03/16/21 Allergies Allergy/AdvReac Type Severity Reaction Status Date / Time ketorol
[2021-03-16 14:39] VITALS: BP 123/74; PULSE 78; RESP 16; TEMP 36.6; O2SAT 98
== END 2021-03-16 14:40 | disposition home or self-care (01) ==
LOC: ER 12:49
PROVIDERS: Emergency Provider Emergency Medicine; PCP Nurse Practitioner Family
DX: H10.32 Unspecified acute conjunctivitis, left eye (principal); Z20.7 Contact with and (suspected) exposure to pediculosis, acariasis and other infestations; F41.8 Other specified anxiety disorders; F17.210 Nicotine dependence, cigarettes, uncomplicated; E03.9 Hypothyroidism, unspecified
CPT/HCPCS: 99281

== ENCOUNTER 2021-04-10 13:25 | Emergency (ER) | payer MEDICAID, SELFPAY ==
[2021-04-10 13:25] VITALS: BP 94/66; PULSE 123; RESP 18; O2SAT 100; BMI 22.8
--- NOTE | 2021-04-10 14:03 | PC.NURSE ---
Unsuccessful blood draw x 1 -RC
--- NOTE | 2021-04-10 14:05 | PC.NURSE ---
lab at bedside attempting blood draw
[2021-04-10 14:24] LABS: Coronavirus 19, PCR Not Detected (NotDetected); Influenza A, PCR Not Detected (NotDetected); Influenza B, PCR Not Detected (NotDetected)
--- NOTE | 2021-04-10 14:39 | HMH.EDGENADL ---
ED Disposition Clinical Impression: Diarrhea, URI (upper respiratory infection), COPD (chronic obstructive pulmonary disease) Disposition: Home, Self-Care Condition on Discharge: Fair Instructions: DI for Diarrhea and Traveler's Diarrhea -- Adult, DI for Diarrhea and Traveler's Diarrhea -- Child, DI for Nausea -- Adult, DI for Nausea -- Child Referrals: Carmen Arauz APRN [Primary Care Provider] - - Critical Care Critical Care Time: No Attestation: On 04/10/21, the high probability of a clinically significant, sudden or life threatening deterioration of the following system(s) required my full and direct attention, intervention and personal management. The time I documented below is in addition to time spent performing reported procedures but includes the following listed in this critical care notation. Medical Decision Making - Dionte Inquiry Pt receiving controlled substance: No Vital Signs: 04/10/21 13:25 04/10/21 19:39 Temperature 98.2 F Temperature Source Temporal Artery Scan Pulse Rate 105 H Pulse Rate [Left Radial] 123 H Respiratory Rate 18 20 Blood Pressure 100/62 L Blood Pressure [Right Arm] 94/66 L Blood Pressure Mean [Right Arm] 75 Blood Pressure Source [Right Arm] Automatic Cuff Blood Pressure Position [Right Arm] Sitting 02 Sat by Pulse Oximetry 100 Oxygen Delivery Method Room Air Room Air - Lab Data Lab Results 04/10/21 13:36: SARS-CoV-2 (PCR) Not detected, Influenza A Untype (PCR) Not detected, Influenza Type B (PCR) Not detected 04/10/21 15:20: WBC 19.3 H, RBC 4.01 L, Hgb 10.2 L, Hct 31.9 L, MCV 79.4 L, MCH 25.4 L, MCHC 32.0, RDW 15.0, Plt Count 324, MPV 9.1, Neut % (Auto) 83.0 H, Lymph % (Auto) 9.9 L, Spink % (Auto) 6.6, Eos % (Auto) 0.1, Baso % (Auto) 0.5, Neut # (Auto) 16.0 H, Lymph # (Auto) 1.9, Spink # (Auto) 1.3 H, Eos # (Auto) 0.0, Baso # (Auto) 0.1, Total Counted 100, Neutrophils % (Manual) 78 H, Lymphocytes % (Manual) 14, Monocytes % (Manual) 8, Platelet Estimate Normal, Hypochromasia 1+, Anisocytosis 1+ 04/10/21 15:20: Sodium 130 L, Potassium 3.4 L, Chloride 94 L, Carbon Dioxide 26, Anion Gap 13.4, BUN 45 H, Creatinine 1.10 H, Estimated Creat Clear 53, Estimated GFR 52 L, Est GFR ( Amer) 63, Glucose 114 H, Calcium 8.5, Total Bilirubin 0.6, AST 20, ALT 13, Alkaline Phosphatase 110, Troponin I < 0.01, Total Protein 6.6, Albumin 3.4 L, Globulin 3.2, Albumin/Globulin Ratio 1.1, Amylase < 30 L, Lipase 36 04/10/21 15:20: D-Dimer 1.42 H 04/10/21 18:30: Troponin I < 0.01 Result diagrams: 04/10/21 15:20 04/10/21 15:20 Orders (Tests/Meds): ED MEDICATIONS Discontinued Medications Generic Name Dose Route Start Last Admin Trade Name Shaylee PRN Reason Stop Dose Admin Acetaminophen 1,000 mg 04/10/21 14:38 04/10/21 18:10 Acetaminophen 500mg Tab PO 04/10/21 14:39 1,000 mg ONCE ONE Administration Belladonna Alkaloids 60 ml 04/10/21 14:37 04/10/21 18:11 Gi Cocktail 60ml Udc PO 04/10/21 14:38 60 ml ONCE ONE Administration Famotidine 20 mg 04/10/21 14:37 04/10/21 18:11 Famotidine 20mg/2ml Vial IV 04/10/21 14:38 20 mg ONCE ONE Administration Lactated Ringer's 500 mls @ 999 mls/hr 04/10/21 14:45 04/10/21 18:02 Lactated Ringer's 1000 Ml Bag IV 04/10/21 15:15 999 mls/hr .Q31M KAREN Administration Iopamidol 75 ml 04/10/21 17:17 04/10/21 17:19 Iopamidol-370 (76%);100ml Bottle IV 04/10/21 17:18 75 ml ONCE ONE Administration Ondansetron HCl 4 mg 04/10/21 14:37 04/10/21 18:11 Ondansetron 4mg/2ml Vial IV 04/10/21 14:38 4 mg ONCE ONE Administration Sodium Chloride 8 ml 04/10/21 14:37 Sodium Chloride 0.9% 10ml Vial IV 05/10/21 14:36 NEEDED PRN dilute pepcid Sodium Chloride 50 ml 04/10/21 17:17 04/10/21 17:18 0.9 % Sodium Chloride 50 Ml Vial IV 04/10/21 17:18 50 ml ONCE ONE Administration Sodium Chloride 10 ml 04/10/21 17:17 04/10/21 17:18 Sodium Chloride 0.9% 10ml Syr (Rad Only) IV
--- NOTE | 2021-04-10 14:43 | HMH.ITSTN ---
patient left AMA refused xray and treatment
--- NOTE | 2021-04-10 14:48 | PC.NURSE ---
Pt was becoming agitated and upset that she was in a harley bed and was uncomfortable. Explained to patient that every ER room was full at this time and apologized to her. She was upset and yelling that she had been here for hours, explained to patient that she had only been here for 1 hr, Well it feels much longer, take this damn IV out of my arm before I rip it out I asked patient to please not yell and curse because there were other patients in the ED and to please not pull out her IV and get blood everywhere. Pt stuck her arm in my face and said well you take it out then. I removed IV at this time and pt signed AMA form prior to leaving. Left with no further incident.
--- NOTE | 2021-04-10 15:01 | PC.NURSE ---
Registration called and advised that patient had come back to the desk and said she didn't want to walk home right now and wanted to come back into the ER as a patient.
--- NOTE | 2021-04-10 15:19 | PC.NURSE ---
Lab at bedside
[2021-04-10 15:31] LABS: Basophils # 0.1 K/mm3 (0-0.2); Basophils % 0.5 % (0.1-2.0); Eosinophils % 0.1 % (0.1-12.0); Hematocrit 31.9 % (37.0-47.0); Hemoglobin 10.2 g/dL (12.2-16.2); Lymphocytes # 1.9 K/mm3 (0.7-4.5); Lymphocytes % 9.9 % (10-50); Mean Corpuscular Hemoglobin 25.4 pg (27.0-31.2); Mean Corpuscular Volume 79.4 fl (81-99); Mean Platelet Volume 9.1 fl (7.4-10.4); Monocytes # 1.3 K/mm3 (0.1-1.0); Monocytes % 6.6 % (1.7-9.3); Platelet Count 324 K/mm3 (142-424); Red Blood Count 4.01 M/mm3 (4.20-5.40); White Blood Count 19.3 K/mm3 (4.8-10.8)
[2021-04-10 15:33] LABS: Chloride 94 mmol/L (98-107); Sodium 130 mmol/L (136-145)
[2021-04-10 15:34] LABS: Potassium 3.4 mmoL/L (3.5-5.1)
[2021-04-10 15:36] LABS: Alanine Aminotransferase 13 U/L (12-78); Alkaline Phosphatase 110 U/L (38-126); Anion Gap 13.4 mEq/L (5-15); Aspartate Amino Transferase 20 U/L (14-36); Bilirubin,Total 0.6 mg/dl (0.2-1.3); Blood Urea Nitrogen 45 mg/dl (7-17); Carbon Dioxide 26 mmol/L (22.0-30.0); Creatinine Clearance Estimated 53 mL/min (50-200); Estimated Glomerular Filt Rate 52 ml/min (>60); GFR (African American) 63 ML/MIN (>60)
--- NOTE | 2021-04-10 15:36 | ECG_ITS ---
APPROVED REPORT Exam: Resting ECG HR:113 bpm ECG Measurements Heart Rate 113 AXES ID 131 P 68 QRSd 101 QRS 80 QT 367 T 47 QTc 434 Conclusion SINUS TACHYCARDIA MODERATE ST DEPRESSION [0.05+ mV ST DEPRESSION] ABNORMAL ECG UNCONFIRMED REPORT Electronically signed by : Ra Ramey MD 04/11/2021 14:04:47
--- NOTE | 2021-04-10 15:36 | XR_ITS ---
PROCEDURE INFORMATION: Exam: XR Chest Exam date and time: 04/10/2021 3:36 PM Age: 51 years old Clinical indication: Shortness of breath TECHNIQUE: Imaging protocol: XR of the chest. Views: 1 view. COMPARISON: CR XR CHEST PORTABLE 06/02/2019 5:55 PM FINDINGS: Airway: Patent Lungs: COPD/emphysema is appreciated. Area of linear scarring and likely bullous emphysema in the right lung apex. No acute interstitial or airspace disease. Pleural spaces: Unremarkable. No pleural effusion. No pneumothorax. Heart/Mediastinum: Unremarkable. No cardiomegaly. Bones/joints: No acute skeletal abnormality or aggressive osseous lesion. IMPRESSION: 1. No acute thoracic pathology. 2. Chronic/incidental findings as above.
[2021-04-10 15:37] LABS: Albumin Level 3.4 g/dl (3.5-5.0); Albumin/Globulin Ratio 1.1 (1.1-1.8); Calcium 8.5 mg/dl (8.4-10.2); Globulin 3.2 g/dL (1.3-3.2); Glucose 114 mg/dl (74-100); Lipase 36 U/L (23-300); Total Protein,Serum 6.6 g/dl (6.3-8.2)
[2021-04-10 15:41] LABS: Amylase < 30 U/L (30-110)
[2021-04-10 15:43] LABS: MANUAL DIFFERENTIAL MANUAL DIFFERENTIAL (MANUAL DIFF)
--- NOTE | 2021-04-10 15:48 | PC.NURSE ---
patient ambulatory to restroom
[2021-04-10 15:52] LABS: Troponin I < 0.01 ng/ml (0.00-0.034)
--- NOTE | 2021-04-10 15:56 | PC.NURSE ---
Radiology at bedside
[2021-04-10 16:03] LABS: D-Dimer 1.42 ug/mL (0.0-0.5)
--- NOTE | 2021-04-10 16:21 | CT_ITS ---
PROCEDURE INFORMATION: Exam: CTA Chest With Contrast Exam date and time: 04/10/2021 4:21 PM Age: 51 years old Clinical indication: Shortness of breath; Additional info: Shortness of breath, elevated dimer TECHNIQUE: Imaging protocol: Computed tomographic angiography of the chest with contrast. 3D rendering (Not supervised by radiologist): MIP and/or 3D reconstructed images were created by the technologist. Radiation optimization: All CT scans at this facility use at least one of these dose optimization techniques: automated exposure control; mA and/or kV adjustment per patient size (includes targeted exams where dose is matched to clinical indication); or iterative reconstruction. Contrast material: ISOVUE; Contrast volume: 75 ml; Contrast route: INTRAVENOUS (IV); COMPARISON: CT ANGIO CHEST 06/02/2019 7:00 PM FINDINGS: Pulmonary arteries: The pulmonary arteries demonstrate marked central enlargement, consistent with severe pulmonary hypertension. Main pulmonary artery measures 4.5 cm in greatest dimension. No pulmonary emboli. Aorta: Unremarkable. No aortic aneurysm. No aortic dissection. Lungs: Chronic linear scarring and paraseptal emphysematous changes in the right lung apex. Traction bronchiectasis in the right lung apex. COPD related lung changes. Mild centrilobular emphysematous changes are present. Ground-glass airspace opacities associated to the area of linear scarring in the right lung apex. No other acute interstitial or airspace disease is appreciated at this time. Pleural spaces: Unremarkable. No pneumothorax. No pleural effusion. Heart: Flattening of the interventricular septum. The heart size is normal. No pericardial thickening or effusion. Lymph nodes: Unremarkable. No enlarged lymph nodes. Bones/joints: Chronic superior endplate compression injury at L2 versus a chronic Schmorl node. There is at least 10% loss in vertebral body height. No other acute skeletal pathology. No aggressive osseous lesions. Soft tissues: Unremarkable. Other findings: The visualized intra-abdominal structures demonstrate no acute findings. IMPRESSION: 1. No pulmonary emboli. 2. Stable severe pulmonary arterial hypertension. 3. Evidence for elevated right heart pressures, stable. 4. Linear scarring with traction bronchiectasis in the right lung apex. There are subtle ground-glass airspace opacities associated to the area of linear scarring which are felt to be related to chronic interstitial disease at this level. Superimposed infectious pneumonic process should be entertained in the appropriate clinical setting. 5. Incidental findings as above.
--- NOTE | 2021-04-10 16:43 | PC.NURSE ---
Dr. Holly at bedside for ultrasound guided IV
[2021-04-10 16:54] LABS: Anisocytosis 1+; Hypochromasia 1+; Lymphocytes % 14 % (10-50); Monocytes % 8 % (2-9); Neutrophils % 78 % (42-76); Platelet Estimate Normal; Total Cells Counted 100
--- NOTE | 2021-04-10 18:30 | PC.NURSE ---
Pt has refused vital signs multiple during her visit here in the ED.
[2021-04-10 19:06] LABS: Troponin I < 0.01 ng/ml (0.00-0.034)
[2021-04-10 19:39] VITALS: BP 100/62; PULSE 105; RESP 20; TEMP 36.8; O2SAT 95
== END 2021-04-10 19:52 | disposition home or self-care (01) ==
PROVIDERS: Emergency Provider Student in an Organized Health Care Education/Training Program; PCP Nurse Practitioner Family
DX: J44.1 Chronic obstructive pulmonary disease with (acute) exacerbation (principal); J06.9 Acute upper respiratory infection, unspecified; F41.8 Other specified anxiety disorders; E10.9 Type 1 diabetes mellitus without complications; F17.210 Nicotine dependence, cigarettes, uncomplicated; F12.10 Cannabis abuse, uncomplicated; Z79.899 Other long term (current) drug therapy
CPT/HCPCS: 36415; 71045; 71275; 80053; 82150; 83690; 84484; 85007; 85025; 85378; 93005; 96365; 96375; 99283; C9803; J2405; Q9967; U0003; U0005

== ENCOUNTER 2021-06-13 11:25 | Emergency (ER) | payer MEDICAID, SELFPAY ==
[2021-06-13 11:24] VITALS: BP 144/74; PULSE 110; RESP 16; TEMP 36.8; O2SAT 99; BMI 21.9
--- NOTE | 2021-06-13 11:37 | HMH.EDGENADL ---
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 Follow-up with [facility] for eye exam, call tomorrow to make appointment: Dr. Abdul, Dr. Houston, Dr. [facility] [address] [place] [address] Referrals: Provider,Referral, [Primary Care Provider] - - Critical Care Critical Care Time: No Attestation: On , the high probability of a clinically significant, sudden or life threatening deterioration of the following system(s) required my full and direct attention, intervention and personal management. The time I documented below is in addition to time spent performing reported procedures but includes the following listed in this critical care notation. 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 I think her symptoms are caused by her interaction with her and his complaints coupled with anxiety. She is already on antipsychotics. General Adult HPI - General Chief complaint: Skin/Abscess/Foreign Body Stated complaint: Skin Issue Time Seen by Provider: 06/13/21 11:37 Mode of Arrival: EMS Limitations: No Limitations Description of Symptoms (Recalled from ER Triage Doc. by RN): Pt stated she has scabies in my eyes, head, eyebrows, inside my vagina , pt stated she has tried creams and PO meds for this in the past, stated she also uses raid bug spray to get rid of them, stated she puts ointment in her eyes, pt stated she got rid of them about 2 weeks ago with a cream, when I showered I saw big and small black bugs fall off . - History of Present Illness HPI narrative: The patient arrives by ambulance stating that she has scabies in my eyes . She says she saw black bugs crawl into her eyes this morning and they are still in the corners of her eyes. She says her vision is blurry and it makes her eyes hurt. Her is currently in the emergency department, he came in by ambulance this morning complaining of scabies. He actually has delusional parasitosis but has dug at his skin so badly that he has a large ulcer on his left thigh and cellulitis of his abdomen and is therefore being admitted. Patient states that she currently has symptoms for 2 days. However, she was also seen in this emergency department on 03/16/2021, along with her at the same time, both of them also complaining of scabies then. She said that she had it in her eyes. She was treated with permethrin and erythromycin ointment. It appears that she did not fill her prescriptions until about 117 and 04/06. - Related Data Home Medications Medication Instructions Recorded Confirmed Nicotine [Nicoderm 21mg/24hr 21 mg TD DAILY 06/01/18 08/12/20 patch] Previous Rx's Medication Instructions Recorded ergocalciferol (vitamin D2) 1,250 50,000 unit PO QWEEK #4 cap 01/26/20 mcg (50,000 unit) capsule Erythromycin Base [Erythromycin 3.5 gm OP TID 7 Days #3.5 gm 03/16/21 3.5gm opth oinment] albuterol sulfate 90 mcg/actuation 1 puff INHALATION Q4HP PRN #18 g 05/06/21 aerosol inhaler budesonide-formoterol HFA 80 2 puff INHALATION BID #10.2 g 05/07/21 mcg-4.5 mcg/actuation aerosol inhaler hydroxyzine pamoate 25 mg capsule See Rx Instructions .ROUTE 05/07/21 .COMPLEX #60 cap levothyroxine
[2021-06-13 12:18] VITALS: BP 120/78; PULSE 87; RESP 18; TEMP 36.6; O2SAT 98
== END 2021-06-13 12:20 | disposition home or self-care (01) ==
PROVIDERS: Emergency Provider Emergency Medicine
DX: F45.22 Body dysmorphic disorder (principal); F22 Delusional disorders; F41.8 Other specified anxiety disorders; J44.9 Chronic obstructive pulmonary disease, unspecified; E10.9 Type 1 diabetes mellitus without complications; E03.9 Hypothyroidism, unspecified; F17.210 Nicotine dependence, cigarettes, uncomplicated; Z79.899 Other long term (current) drug therapy
CPT/HCPCS: 99283

== ENCOUNTER → 2021-12-02 13:01 | Outpatient (CLI) | payer MEDICAID, SELFPAY ==
--- NOTE | 2021-12-02 13:09 | XR_ITS ---
FINAL REPORT CLINICAL HISTORY: RT KNEE PAIN FINDINGS: RIGHT KNEE Three views of the right knee reveal a transverse fracture the patella with up to 14 mm of distraction of the fracture fragments. The bony alignment is normal. The joint spaces are preserved. There is no evidence of joint effusion. There is soft tissue swelling. IMPRESSION: Patella fracture as described. Reviewed, Interpreted and Dictated by Colton Hu III, MD Transcribed by Vanessa Lobo Authenticated and [facility]
== END ==
PROVIDERS: PCP Nurse Practitioner Family; Visit Provider Nurse Practitioner Family
DX: M25.561 Pain in right knee (principal)
CPT/HCPCS: 73562

== ENCOUNTER 2021-12-08 14:57 | Emergency (ER) | payer MEDICAID, SELFPAY ==
[2021-12-08 14:57] VITALS: BP 99/63; PULSE 79; RESP 18; TEMP 36.6; O2SAT 99; BMI 17.2
--- NOTE | 2021-12-08 15:09 | HMH.EDPSYCH ---
Discharge Plan Disposition Patient Disposition: Xfer Psychiatric Hosp Prescriptions Prescriptions: No Action albuterol sulfate 90 mcg/actuation HFA aerosol inhaler 1 puff inhalation Q4HP PRN (Reason: Shortness Of Breath) Qty: 18 2RF levothyroxine 25 mcg tablet 25 mcg PO DAILY 30 Days Qty: 30 3RF paroxetine HCl 40 mg tablet 40 mg .ROUTE .COMPLEX Qty: 30 3RF Rx Instructions: 40 mg; risperidone 3 mg tablet See Rx Instructions .ROUTE .COMPLEX Qty: 30 2RF Dose Instruction: TAKE 1 TABLET BY MOUTH DAILY FOR MOOD Rx Instructions: TAKE 1 TABLET BY MOUTH DAILY FOR MOOD ropinirole 0.5 mg tablet 0.5 mg PO HS Qty: 30 2RF ergocalciferol (vitamin D2) 1,250 mcg (50,000 unit) capsule 50,000 unit PO QWEEK Qty: 4 2RF budesonide-formoterol 80-4.5 mcg/actuation HFA aerosol inhaler 2 puff inhalation BID Qty: 10.2 0RF hydroxyzine pamoate 25 mg capsule See Rx Instructions .ROUTE .COMPLEX Qty: 60 0RF Dose Instruction: TAKE 1 CAPSULE BY MOUTH TWICE DAILY NEEDED FOR ANXIETY Rx Instructions: TAKE 1 CAPSULE BY MOUTH TWICE DAILY NEEDED FOR ANXIETY Clinical Impressions Clinical Impression: Suicidal thoughts Discharge ED Provider: Bishop [facility] Psych HPI General Chief Complaint: Psychiatric Symptoms Stated Complaint: suicidal Time Seen by Provider: 12/08/21 15:00 History of Present Illness HPI Narrative: 51-year-old female with history of depression presents with suicidal thoughts. She is anxious about her cheating on her and says that she has had thoughts of hurting herself including stepping out in front of a train. This is similar to the thought she had in mid October. She has no current medical complaints chest pain shortness of air abdominal pain nausea or vomiting. Related Data Previous Rx's Medication Instructions Recorded budesonide-formoterol HFA 80 2 puff inhalation BID soa #10.2 05/07/21 mcg-4.5 mcg/actuation aerosol grams inhaler hydroxyzine pamoate 25 mg capsule See Rx Instructions .Route 05/07/21 .COMPLEX #60 caps albuterol sulfate 90 mcg/actuation 1 puff inhalation Q4HP PRN 11/02/21 aerosol inhaler Shortness Of Breath #18 grams ergocalciferol (vitamin D2) 1,250 50,000 unit PO QWEEK #4 caps 11/02/21 mcg (50,000 unit) capsule levothyroxine 25 mcg tablet 25 mcg PO DAILY 30 days #30 tabs 11/02/21 paroxetine HCl 40 mg tablet 40 mg .Route .COMPLEX #30 tabs 11/02/21 risperidone 3 mg tablet See Rx Instructions .Route 11/02/21 .COMPLEX #30 tabs ropinirole 0.5 mg tablet 0.5 mg PO HS Restless leg #30 tabs 11/02/21 Allergies Allergy/AdvReac Type Severity Reaction Status Date / Time ketorolac [From TORADOL] Allergy Severe S-SWELLS-OR Verified 11/02/21 14:45 AL/THROAT hydrocodone [From LORTAB] Allergy Unknown Verified 11/02/21 14:45 PFSH PFSH Medical History Anxiety COPD (chronic obstructive pulmonary disease) Emphysema, unspecified Heart murmur Hypothyroidism Restless leg syndrome Tobacco use Social History Smoking Status: Current every day smoker tobacco type: cigarettes packs per day: 1 second hand exposure: Yes alcohol intake: never substance use type: marijuana and methamphetamine current occupational status: other Travel in the last 8 weeks: None household members: significant other housing: apartment caffeine: Yes ROS Obtained: Yes All systems reviewed & no additional complaints except as documented Physical Exam General General appearance: alert and in no apparent distress Eye Eye exam: Present PERRL and EOMI ENT ENT exam: Present normal exam and normal oropharynx Neck Neck exam: Present normal inspection Chest Chest inspection: Present symmetric chest wall rise Respiratory Respiratory exam: Present normal lung sounds bilaterally; Absent respiratory distress Cardiovascular Cardiovascular exam: Present regular rate and normal rhythm Abdominal Exam Abdominal exam: Present so
--- NOTE | 2021-12-08 15:17 | PC.NURSE ---
speaking with behavioral health therapist who states they will come to see the pt if MD thought she was needed, or she can fu with the therapist Monday in the office.
--- NOTE | 2021-12-08 15:24 | PC.NURSE ---
talked to care mgn at getting pt sent to a behavioral health facility for further evaluation
[2021-12-08 15:44] VITALS: BMI 17.2
--- NOTE | 2021-12-08 15:58 | ECG_ITS ---
APPROVED REPORT Exam: Resting ECG HR:65 bpm ECG Measurements Heart Rate 65 AXES MI 167 P 64 QRSd 97 QRS 52 QT 443 T 63 QTc 455 Conclusion SINUS RHYTHM NORMAL ECG UNCONFIRMED REPORT Electronically signed by : Ra Ramey MD 12/09/2021 13:49:42
[2021-12-08 16:01] LABS: Basophils # 0.2 K/mm3 (0-0.2); Eosinophils # 0.3 K/mm3 (0.0-0.4); Eosinophils % 3.7 % (0.1-12.0); Hematocrit 31.6 % (37.0-47.0); Hemoglobin 10.5 g/dL (12.2-16.2); Lymphocytes # 2.4 K/mm3 (0.7-4.5); Lymphocytes % 26.4 % (10-50); Mean Corpuscular HGB Conc 33.1 g/dL (31.8-35.4); Mean Corpuscular Hemoglobin 24.2 pg (27.0-31.2); Mean Platelet Volume 7.9 fl (7.4-10.4); Monocytes # 0.5 K/mm3 (0.1-1.0); Monocytes % 5.7 % (1.7-9.3); Neutrophils # 5.5 K/mm3 (1.8-7.8); Neutrophils % 62.1 % (37.0-80.0); Platelet Count 321 K/mm3 (142-424); Red Blood Count 4.32 M/mm3 (4.20-5.40); Red Cell Distribution Width 19.3 % (11.5-17.5); White Blood Count 8.9 K/mm3 (4.8-10.8)
[2021-12-08 16:13] LABS: Chloride 98 mmol/L (98-107); Potassium 3.6 mmoL/L (3.5-5.1); Sodium 137 mmol/L (136-145)
[2021-12-08 16:15] LABS: Blood Urea Nitrogen 17 mg/dl (7-17); Creatinine Clearance Estimated 49 mL/min (50-200); Estimated Glomerular Filt Rate 65 ml/min (>60); GFR (African American) 79 ML/MIN (>60)
[2021-12-08 16:16] LABS: Alanine Aminotransferase 14 U/L (12-78); Albumin Level 4.5 g/dl (3.5-5.0); Albumin/Globulin Ratio 1.4 (1.1-1.8); Alkaline Phosphatase 117 U/L (38-126); Anion Gap 12.6 mEq/L (5-15); Aspartate Amino Transferase 43 U/L (14-36); Bilirubin,Total 0.3 mg/dl (0.2-1.3); Calcium 8.9 mg/dl (8.4-10.2); Carbon Dioxide 30 mmol/L (22.0-30.0); Globulin 3.2 g/dL (1.3-3.2); Glucose 92 mg/dl (74-100); Total Protein,Serum 7.7 g/dl (6.3-8.2)
--- NOTE | 2021-12-08 16:22 | PC.NURSE ---
per care management guerita states staff at [facility] had just gotten pt information off the fax machine and was going to review it with the doctor there and then would be contacting the ER back. Notified primary NADIA rehman
[2021-12-08 16:23] LABS: Acetaminophen < 10 ug/ml (10-30); Salicylate < 1.0 mg/dL (2.0-20.0)
--- NOTE | 2021-12-08 16:31 | PC.NURSE ---
Pati Bauer with pt
--- NOTE | 2021-12-08 16:32 | PC.NURSE ---
meal tray called for pt
--- NOTE | 2021-12-08 16:36 | PC.NURSE ---
siva bardales at BS for consult
--- NOTE | 2021-12-08 16:52 | CT_ITS ---
PROCEDURE INFORMATION: Exam: CT Head Without Contrast Exam date and time: 12/08/2021 5:05 PM Age: 51 years old Clinical indication: Injury or trauma TECHNIQUE: Imaging protocol: Computed tomography of the head without contrast. Radiation optimization: All CT scans at this facility use at least one of these dose optimization techniques: automated exposure control; mA and/or kV adjustment per patient size (includes targeted exams where dose is matched to clinical indication); or iterative reconstruction. COMPARISON: No relevant prior studies available. FINDINGS: Brain: No acute intracranial hemorrhage, cerebral edema, or midline shift. Cerebral ventricles: No hydrocephalus. Paranasal sinuses: There is mild mucosal thickening in the left frontal sinus. Mastoid air cells: Visualized mastoid air cells are well aerated. Orbital cavities: The visualized orbits appear unremarkable. Bones/joints: No acute fracture. Soft tissues: Unremarkable. IMPRESSION: No acute intracranial abnormality.
--- NOTE | 2021-12-08 16:56 | PC.NURSE ---
pt speaking with gerson rodriguez
[2021-12-08 16:59] LABS: Coronavirus 19, PCR Not Detected (NotDetected); Influenza A, PCR Not Detected (NotDetected); Influenza B, PCR Not Detected (NotDetected)
[2021-12-08 17:00] VITALS: BP 104/65; PULSE 77; O2SAT 100
--- NOTE | 2021-12-08 17:00 | PC.NURSE ---
pt talking with gerson cárdenas
[2021-12-08 17:35] LABS: Urine Pregnancy, HCG Qual. Negative (Negative)
[2021-12-08 17:43] LABS: Amphetamine/Metha Screen,Urine Negative ng/ml (<1000); Barbiturates Screen,Urine Negative ng/ml (<200)
[2021-12-08 17:44] LABS: Benzodiazepines Screen,Urine Negative ng/ml (<200)
[2021-12-08 17:45] LABS: Cannabinoid Screen,Urine Negative ng/ml (<50); Cocaine Screen,Urine Negative ng/ml (<300)
[2021-12-08 17:46] LABS: Methadone Screen,Urine Negative ng/ml (<300)
[2021-12-08 17:47] LABS: Opiate Screen,Urine Negative ng/ml (<300); Phencyclidine Screen,Urine Negative ng/ml (<25)
--- NOTE | 2021-12-08 18:00 | PC.NURSE ---
pt walked out of ER, pt informed she is accepted by gerson rodriguez, states I don't care should have sent me a long time ago . Called dispatch to send an officer to find pt r/t pt voicing SI, gave description of pt clothing
--- NOTE | 2021-12-08 18:04 | PC.NURSE ---
pt walked out of ER stating we were not fast enough getting her to [facility], Police called for pt pickup Vida at [facility] notified of pt status with leaving the ER and police notification
[2021-12-08 18:42] VITALS: BP 104/65; PULSE 77; RESP 20; TEMP 36.6; O2SAT 100
== END 2021-12-08 18:44 ==
PROVIDERS: Emergency Provider Emergency Medicine
DX: R45.851 Suicidal ideations (principal)
CPT/HCPCS: 70450; 80053; 80305; 80329; 81025; 85025; 93005; C9803; U0003; U0005

== ENCOUNTER 2021-12-11 20:31 | Inpatient (IN) | payer MEDICAID, SELFPAY ==
[2021-12-11] VITALS (13 sets, daily range): BP systolic 87–148; BP diastolic 58–94; PULSE 89–155; RESP 18–20; TEMP 36.6–36.7; O2SAT 94–100; BMI 17.2; BMI 18.8
--- NOTE | 2021-12-11 | IR_ITS ---
APPROVED REPORT Patient Location: [facility] Hygienist: TOD Mayen RT (R) PROCEDURES Left heart catheterization Left ventriculogram Selective coronary angiogram Drug-eluting stent deployment to the distal dominant right coronary artery Angioplasty to the posterior descending INDICATION Acute ST elevation myocardial infarction Informed consent was obtained prior to the procedure. Estimated Blood Loss: less than 10 ml TECHNIQUE One percent lidocaine used to anesthetize the right anterior aspect of the wrist. The right radial artery was accessed via the Seldinger technique. A 6 Macedonian sheath was placed in the right radial artery. 2.5 mg of verapamil, 800 mcg of nitroglycerin, 1mg Lidocaine and 5000 U Heparin were given through the arterial sheath. The papa catheter was also used to perform left heart catheterization, left ventriculogram and selective coronary angiogram. At the end the diagnostic angiogram therapeutic heparin was given for an ACT of 260 and the guide catheter was placed in the right coronary artery followed by a Choice PT extra-support wire placed distally. A 3.5 x 38 mm resolute Sam stent was placed distal in the right coronary artery and deployed at 16 francisco. An additional 3.5 x 22 mm resolute [place] stent was placed proximal to this yet still overlapping it and deployed at 18 francisco. A wire was placed back in the posterior descending artery where a 2.75 x 12 mm compliant balloon was then deployed in the distal right coronary artery extending into the proximal posterior descending artery and then deployed at 12 francisoc. COREY-3 flow was present before and after the procedure. At the end the procedure the apparatus was removed the sheath was removed the groin is reprepped gloves were changed sheath was removed and hemostasis was achieved using Perclose device patient was transferred to the postop putting in stable addition ANGIOGRAPHIC RESULTS The left main artery Normal The left anterior descending artery Has proximal tandem eccentric 10% stenoses with mid vessel 20% stenoses and distal 20% stenosis The circumflex artery Nondominant and has tandem proximal 20% stenoses The right coronary artery Is a dominant vessel and has proximal 30 to 40% stenosis with mid vessel 50 to 60% stenosis followed by an additional concentric hazy 70% stenosis immediately proximal to a large posterior descending artery and posterior lateral bifurcating branch. The posterior lateral branch gives rise to 2 large branches with the inferior branch having proximal 40% concentric stenosis with the superior branch having proximal 30% stenosis The OLMEDO ventriculogram reveals Normal 65% The left ventricular end-diastolic pressure 10 mmHg IMPRESSION Coronary artery disease as described above Successful stenting of the right coronary artery severe disease reduced to 0% with 2 contiguous drug-eluting stents Angioplasty to a large posterior descending artery Normal ejection fraction Normal left ventricular and SI pressure PLAN 1. Brilinta 90 twice daily plus aspirin 81 mg daily 2. High intensity statin therapy with a goal LDL less than 55 to 3. Avoidance of illegal substances 4. Bisoprolol 10 mg daily plus MIMI inhibitor's once hemodynamically stable 5. Patient should remain in the hospital for 48 hours with continuous telemetry monitoring 6. Avoidance of tobacco products 7. Cardiac rehabilitation Electronically signed by : Jorge Alberto Nunez MD 12/11/2021 21:53:38
--- NOTE | 2021-12-11 20:18 | ECG_ITS ---
APPROVED REPORT Exam: Resting ECG HR:155 bpm ECG Measurements Heart Rate 155 AXES QRSd 185 QRS 10 QT 300 T 60 QTc 387 Conclusion ATRIAL FLUTTER/TACHYCARDIA WITH RAPID VENTRICULAR RESPONSE INTRAVENTRICULAR CONDUCTION DELAY [130+ ms QRS DURATION] CRITICAL TEST RESULT UNCONFIRMED REPORT Electronically signed by : Ra Ramey MD 12/16/2021 16:05:07
--- NOTE | 2021-12-11 20:34 | PC.NURSE ---
STEMI ALERT CALLED. CATH TEAM CALLED
--- NOTE | 2021-12-11 20:36 | HMH.EDGENADL ---
Discharge Plan Disposition Patient Disposition: Admitted As Inpatient Condition: Serious Clinical Impressions Clinical Impression: Acute ST elevation myocardial infarction (STEMI) Discharge ED Provider: Tigre Toney General Adult HPI General Chief complaint: Chest Pain Stated complaint: chest pain Time Seen by Provider: 12/11/21 20:34 Mode of Arrival: EMS History of Present Illness HPI narrative: Patient is a 51-year-old female with past medical history of polysubstance abuse who presents emergency department for evaluation of chest pain. Patient denies meth use within the last 10 days. Onset was acute, occurring earlier today stemming from a social situation for which she became emotional. In route patient was hemodynamically stable, chest pain persisted. No other acute complaints at this time. Related Data Previous Rx's Medication Instructions Recorded budesonide-formoterol HFA 80 2 puff inhalation BID soa #10.2 05/07/21 mcg-4.5 mcg/actuation aerosol grams inhaler hydroxyzine pamoate 25 mg capsule See Rx Instructions .Route 05/07/21 .COMPLEX #60 caps albuterol sulfate 90 mcg/actuation 1 puff inhalation Q4HP PRN 11/02/21 aerosol inhaler Shortness Of Breath #18 grams ergocalciferol (vitamin D2) 1,250 50,000 unit PO QWEEK #4 caps 11/02/21 mcg (50,000 unit) capsule levothyroxine 25 mcg tablet 25 mcg PO DAILY 30 days #30 tabs 11/02/21 paroxetine HCl 40 mg tablet 40 mg .Route .COMPLEX #30 tabs 11/02/21 risperidone 3 mg tablet See Rx Instructions .Route 11/02/21 .COMPLEX #30 tabs ropinirole 0.5 mg tablet 0.5 mg PO HS Restless leg #30 tabs 11/02/21 Allergies Allergy/AdvReac Type Severity Reaction Status Date / Time ketorolac [From TORADOL] Allergy Severe S-SWELLS-OR Verified 11/02/21 14:45 AL/THROAT hydrocodone [From LORTAB] Allergy Unknown Verified 11/02/21 14:45 PFSH PFSH Medical History Anxiety COPD (chronic obstructive pulmonary disease) Emphysema, unspecified Heart murmur Hypothyroidism Restless leg syndrome Tobacco use Social History Smoking Status: Current every day smoker tobacco type: cigarettes packs per day: 1 second hand exposure: Yes alcohol intake: never substance use type: marijuana and methamphetamine current occupational status: other Travel in the last 8 weeks: None household members: significant other housing: apartment caffeine: Yes ROS Obtained: Yes All systems reviewed & no additional complaints except as documented Physical Exam General General appearance: alert and in no apparent distress Head Head exam: atraumatic and normocephalic Eye Eye exam: Present PERRL and EOMI ENT ENT exam: Present mucous membranes moist Neck Neck exam: Present normal inspection Chest Chest inspection: Present normal inspection and symmetric chest wall rise Respiratory Respiratory exam: Present normal lung sounds bilaterally; Absent respiratory distress Cardiovascular Cardiovascular exam: Present normal rhythm and tachycardia Abdominal Exam Abdominal exam: Present soft; Absent tenderness Extremities Exam Extremities exam: Present normal inspection Neurological Exam Neurological exam: Present alert and oriented X3 Psychiatric Psychiatric exam: Present normal affect Skin Skin exam: Present warm and dry Medical Decision Making Dionte Inquiry Pt receiving controlled substance: No Vital Signs: 12/11/21 20:31 12/11/21 20:48 12/11/21 20:48 Temperature 98.1 F Temperature Source Oral Pulse Rate 155 H 155 H Pulse Rate [Left Radial] 155 H Respiratory Rate 18 20 Blood Pressure 111/73 Blood Pressure [Right Arm] 87/60 L Blood Pressure Mean Blood Pressure Mean [Right Arm] 69 Blood Pressure Source [Right Arm] Automatic Cuff Blood Pressure Position [Right Arm] Sitting 02 Sat by Pulse Oximetry 94 L 98 Oxygen Delivery Method Room Air Room Air 12/11/21 21:00 Temperature Temperature Source Pulse Rate 100 H Pulse Rate [
--- NOTE | 2021-12-11 20:37 | PC.NURSE ---
SPOKE WITH ALL MEMBERS OF CATH TEAM.
--- NOTE | 2021-12-11 20:38 | PC.NURSE ---
@ 0849 - Dr. Toney s/w Dr Nunez- sent EKG images to Dr. Nunez.
--- NOTE | 2021-12-11 20:42 | XR_ITS ---
PROCEDURE INFORMATION: Exam: XR Chest Exam date and time: 12/11/2021 8:54 PM Age: 51 years old Clinical indication: Pain; Chest pressure; Additional info: Chest pain TECHNIQUE: Imaging protocol: Radiologic exam of the chest. Views: 1 view. COMPARISON: CR XR CHEST PORTABLE 04/10/2021 3:53 PM FINDINGS: Lungs: Heterogeneous opacity in the right upper lung appears similar to forestry consultant topogram from prior CT in March of this year, likely fibrosis. Lungs are hyperinflated. Pleural spaces: Unremarkable. No pleural effusion. No pneumothorax. Heart/Mediastinum: Enlarged main pulmonary artery trunk is again demonstrated. Heart size is normal. Bones/joints: Unremarkable. IMPRESSION: Hyperinflated but clear lungs. Severe enlargement of the main pulmonary artery trunk is unchanged from priors, likely representing chronic primary PA hypertension.
--- NOTE | 2021-12-11 20:42 | PC.NURSE ---
@ 2033 - Dr. Nunez agreed STEMI alert called. Asked to bring chemical laboratory scientist team in. filing and polishing supervisor notified of this
--- NOTE | 2021-12-11 20:47 | PC.NURSE ---
PT AWARE OF PLAN TO GO TO [facility] AND PT IS VERBALLY AGREEABLE. PT CLOTHING BELONGINGS REMOVED AND PLACED IN PATIENT BELONGINGS BAG. PT REPORTS THAT ALL OF HER MEDICATIONS WERE RECENTLY STOLEN AND SHE HAS NOT HAD HER MEDICATIONS IN A WHILE.
[2021-12-11 20:54] LABS: Basophils # 0.1 K/mm3 (0-0.2); Basophils % 0.7 % (0.1-2.0); Chloride 102 mmol/L (98-107); Eosinophils # 0.2 K/mm3 (0.0-0.4); Eosinophils % 1.2 % (0.1-12.0); Hematocrit 33.6 % (37.0-47.0); Hemoglobin 10.4 g/dL (12.2-16.2); Lymphocytes # 2.5 K/mm3 (0.7-4.5); Lymphocytes % 18.5 % (10-50); Mean Corpuscular HGB Conc 30.8 g/dL (31.8-35.4); Mean Corpuscular Hemoglobin 22.1 pg (27.0-31.2); Mean Corpuscular Volume 71.9 fl (81-99); Mean Platelet Volume 7.2 fl (7.4-10.4); Monocytes # 0.8 K/mm3 (0.1-1.0); Monocytes % 5.7 % (1.7-9.3); Neutrophils # 10.1 K/mm3 (1.8-7.8); Neutrophils % 73.8 % (37.0-80.0); Platelet Count 356 K/mm3 (142-424); Red Blood Count 4.68 M/mm3 (4.20-5.40); Red Cell Distribution Width 19.7 % (11.5-17.5); Sodium 139 mmol/L (136-145); White Blood Count 13.7 K/mm3 (4.8-10.8)
--- NOTE | 2021-12-11 20:54 | PC.NURSE ---
PT WAS PLACED ON PADS IMMEDIATELY UPON EKG COMPLETION AND GROIN WAS PREPARED FOR ANIMAL BEHAVIORIST. MULTIPLE ATTMPTS TO CALL FAMILY WITHOUT SUCCESS.
[2021-12-11 20:57] LABS: Blood Urea Nitrogen 18 mg/dl (7-17); Creatinine Clearance Estimated 29 mL/min (50-200); Estimated Glomerular Filt Rate 36 ml/min (>60); GFR (African American) 44 ML/MIN (>60)
[2021-12-11 20:58] LABS: Calcium 8.9 mg/dl (8.4-10.2); Carbon Dioxide 24 mmol/L (22.0-30.0); Glucose 153 mg/dl (74-100)
--- NOTE | 2021-12-11 20:59 | PC.NURSE ---
Dr. Toney notified of critical potassium 3.0
--- NOTE | 2021-12-11 21:00 | PC.NURSE ---
SEVERAL ATTEMPTS TO CONNECT PATIENT'S SON RODERICK AT PT'S REQUEST. NO ANSWER AND UNABLE TO LEAVE VOICE MAIL. PATIENT AWARE.
[2021-12-11 21:04] LABS: Coronavirus 19, PCR Not Detected (NotDetected); Influenza A, PCR Not Detected (NotDetected); Influenza B, PCR Not Detected (NotDetected)
--- NOTE | 2021-12-11 21:05 | PC.NURSE ---
Pt left for laborer pipelines at this time
--- NOTE | 2021-12-11 21:05 | PC.NURSE ---
@ 2049 Dr. Toney s/w Dr Lawrence for admission (concrete pile driver operator for Dr Ignacio). agrees. supervisor powdered sugar aware for bed assignment.
[2021-12-11 21:10] LABS: Troponin I 0.03 ng/ml (0.00-0.034)
[2021-12-11 22:05] LABS: CATHL Activated Clotting Time 266 SEC (74-125)
[2021-12-11 22:05] LABS: CATHL Activated Clotting Time 322 SEC (74-125)
--- NOTE | 2021-12-11 22:15 | PC.NURSE ---
pt received from laboratory animal care veterinarian in stable condition, dressing to right groin area CDI, no hematoma or drainage noted, pt alert and oriented x4; skin pwd, pt instructed to remain flat until 2345; pt verbalized understanding, see post angio v/s; no other issues noted at this time.
--- NOTE | 2021-12-11 22:15 | PC.NURSE ---
PT ARRIVED TO FLOOR VIA STRETCHER AT THIS TIME
[2021-12-12] VITALS (18 sets, daily range): BP systolic 97–161; BP diastolic 40–81; PULSE 70–83; RESP 16–20; TEMP 36.3–37.4; O2SAT 96–100
--- NOTE | 2021-12-12 04:32 | PC.NURSE ---
no acute distress, respiratory: lungs CTA bilateral, 02 sat 99% on R/A; cardiac: heart RRR hr 79, telemetry reveals nsr, pt denies CP, GI; abd soft nontender, no issues, : pt voids without difficulty, Extremities: no edema, Neuro: alert and oriented x4; Skin: pt is thin, pwd and fragile, right groin dressing CDI with no signs of hematoma or drainage
[2021-12-12 07:12] LABS: Anion Gap 12.5 mEq/L (5-15); Blood Urea Nitrogen 20 mg/dl (7-17); Calcium 8.3 mg/dl (8.4-10.2); Carbon Dioxide 21 mmol/L (22.0-30.0); Chloride 104 mmol/L (98-107); Cholesterol 128 mg/dl (140-200); Creatinine Clearance Estimated 43 mL/min (50-200); Estimated Glomerular Filt Rate 52 ml/min (>60); GFR (African American) 63 ML/MIN (>60); Glucose 114 mg/dl (74-100); HDL Cholesterol 64 mg/dl (40-60); Potassium 3.5 mmoL/L (3.5-5.1); Sodium 134 mmol/L (136-145); Triglycerides 87 mg/dl (30-150); VLDL Cholesterol 17 mg/dL (0-40)
[2021-12-12 07:23] LABS: Direct LDL Cholesterol 43.86 mg/dL (100-129)
[2021-12-12 07:37] LABS: Basophils # 0.1 K/mm3 (0-0.2); Basophils % 0.7 % (0.1-2.0); Eosinophils # 0.2 K/mm3 (0.0-0.4); Eosinophils % 2.6 % (0.1-12.0); Lymphocytes # 1.9 K/mm3 (0.7-4.5); Lymphocytes % 22.1 % (10-50); Mean Corpuscular Hemoglobin 22.9 pg (27.0-31.2); Mean Corpuscular Volume 71.5 fl (81-99); Monocytes # 0.7 K/mm3 (0.1-1.0); Neutrophils # 5.6 K/mm3 (1.8-7.8); Neutrophils % 66.6 % (37.0-80.0); Platelet Count 325 K/mm3 (142-424); Red Blood Count 4.06 M/mm3 (4.20-5.40); Red Cell Distribution Width 19.7 % (11.5-17.5); White Blood Count 8.5 K/mm3 (4.8-10.8)
[2021-12-12 07:42] LABS: Hemoglobin 9.2 g/dL (12.2-16.2)
--- NOTE | 2021-12-12 09:36 | HMH.PHAINT1 ---
Pharmacy Intervention Comments: MEDICATION RECONCILIATION COMPLETE USING LIST FROM MD OFFICE VISIT AND EXTERNAL PHARMACY FILL HISTORY.
--- NOTE | 2021-12-12 09:37 | P.CONPHA_ITS ---
[facility] Pharmacy VTE Monitoring Patient Demographics Admission date: 12/11/21 Report Date: 12/12/21 Time: 09:37 Patient Allergies ketorolac [From TORADOL] Allergy (Severe, Verified 11/02/21 14:45) M-[id number]/THROAT hydrocodone [From LORTAB] Allergy (Unknown, Verified 11/02/21 14:45) Height: 1.57 m Weight: 46.38 kg Current Active Problems (Updated 12/11/21 @ 22:58 by Janeth Barnett RN) Acute ST elevation myocardial infarction (STEMI) (Acute) VTE Risk Labs: VTE Related Lab Results Hgb 9.2 g/dL (12.2-16.2) L D 12/12/21 06:48 Hct 29.0 % (37.0-47.0) L 12/12/21 06:48 Plt Count 325 K/mm3 (142-424) 12/12/21 06:48 BUN 20 mg/dl (7-17) H 12/12/21 06:48 Creatinine 1.10 mg/dl (0.52-1.04) H D 12/12/21 06:48 Estimated Creat Clear 43 mL/min (50-200) 12/12/21 06:48 Was VTE Risk Assessment Performed: Yes VTE Score: 5 VTE Risk Level: Low Risk Clinical Trial Participant: No Prophylaxis VTE Prophylaxis Ordered?: Yes Types of VTE Prophylaxis: TEDS Knee High Location of Applied Device: Refused
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
--- NOTE | 2021-12-12 17:36 | ECG_ITS ---
APPROVED REPORT Exam: Resting ECG HR:79 bpm ECG Measurements Heart Rate 79 AXES IA 157 P 64 QRSd 98 QRS 3 QT 400 T 52 QTc 434 Conclusion SINUS RHYTHM NORMAL ECG UNCONFIRMED REPORT Electronically signed by : Ra Ramey MD 12/16/2021 16:03:16
--- NOTE | 2021-12-12 18:36 | PC.NURSE ---
EKG obtained this afternoon when pt c/o of chest pain, that she referred to feeling like heart juani. Dr. Berg made aware and made aware of her normal EKG obtained. Did get order for protonix per may when Dr. Berg rounded today. Nicotine 21 mg patch also ordered prn per may. Son @ bedside. Pt has also c/o of soa, sats are 97-100% on RA. As obtaining EKG,pt was asking if she could go outside to smoke. Educated pt this is a smoke free facility and this poses more risks to health as well.Verbed understanding. VSS.
[2021-12-12 23:52] LABS: Coronavirus 19, PCR Not Detected (NotDetected); Influenza A, PCR Not Detected (NotDetected); Influenza B, PCR Not Detected (NotDetected)
[2021-12-13] VITALS (7 sets, daily range): BP systolic 102–133; BP diastolic 53–65; PULSE 53–88; RESP 14–16; TEMP 36.4–38; O2SAT 93–98; BMI 20.2
--- NOTE | 2021-12-13 04:43 | PC.NURSE ---
Addendum entered by Janeth Barnett RN 12/13/21 06:06: pt with low grade temp 100.4 noted with 4am vitals Original Note: pt had restless night initially, but seem to rest better after gi cocktail was given as ordered No acute distress noted respiratory: pt complains of soa, states lungs feel like they are buring, noted lung sounds with expiratory rhonchi to Right upper and lower lobes with scattered wheezing, 02 sats remain 97-99% on room air, duoneb x1 ordered cardiac: extremities without edema, denies chest pain GI: pt complains of sore throat and states esophagus feels like its burning, gi cocktail was given x1 : voiding without difficulty skin: right groin cath site with dressing intact, without hematoma or drainage neuro: pt is alert and oriented x4 no other issues or concerns noted at this time
--- NOTE | 2021-12-13 09:06 | EXP.CARD.CON ---
History of Present Illness History of Present Illness Consult date: 12/13/21 Requesting physician: Eduardo Berg Consult reason: chest pain Chief complaint: STEMI Additional Medical History:: 1. CAD A. Inferior STEMI, 12/11/2021, ANGIOGRAPHIC RESULTS The left main artery Normal The left anterior descending artery Has proximal tandem eccentric 10% stenoses with mid vessel 20% stenoses and distal 20% stenosis The circumflex artery Nondominant and has tandem proximal 20% stenoses The right coronary artery Is a dominant vessel and has proximal 30 to 40% stenosis with mid vessel 50 to 60% stenosis followed by an additional concentric hazy 70% stenosis immediately proximal to a large posterior descending artery and posterior lateral bifurcating branch.? The posterior lateral branch gives rise to 2 large branches with the inferior branch having proximal 40% concentric stenosis with the superior branch having proximal 30% stenosis The OLMEDO ventriculogram reveals Normal 65% The left ventricular end-diastolic pressure 10 mmHg IMPRESSION Coronary artery disease as described above Successful stenting of the right coronary artery severe disease reduced to 0% with 2 contiguous drug-eluting stents Angioplasty to a large posterior descending artery Normal ejection fraction Normal left ventricular and SI pressure PLAN 1. Brilinta 90 twice daily plus aspirin 81 mg daily 2. High intensity statin therapy with a goal LDL less than 55 to 3. Avoidance of illegal substances 4. Bisoprolol 10 mg daily plus MIMI inhibitor's once hemodynamically stable 5. Patient should remain in the hospital for 48 hours with continuous telemetry monitoring 6. Avoidance of tobacco products 7. Cardiac rehabilitation Electronically signed by : Jorge Alberto Nunez MD? 12/11/2021 21:53:38 2. Tobacco use, 1 pack/day x 40 years A. COPD with home oxygen use 3. History of anxiety/depression A. CT of the head, 12/08/2021, no acute abnormality per 4. Hypothyroidism, on replacement 5. History of polysubstance abuse including meth and marijuana 6. History of uterine cancer 7. Anemia, chronic over the last 2 years with hemoglobin ranging from 9-10.5 8. Dyslipidemia, LDL 43.8, cholesterol 128, triglycerides 87, HDL 64, 12/12/2021 A. Statin therapy started due to STEMI and CAD, 11/2019 9. Pulmonary hypertension, moderate-severe A. Echocardiogram, 05/31/2018, 1. Normal left ventricular size, preserved left ventricular systolic function, visually estimated ejection fraction of 50% with no regional wall motion abnormality 2. Moderately enlarged right ventricle with normal contractility. 3. Mild mitral and tricuspid regurgitation, calculated right ventricular systolic pressure is 58 mmHg consistent with moderate pulmonary hypertension. 4. No significant pericardial effusion noted. B. CTA of the chest, 12/03/2018, 1. Enlarged pulmonary arteries consistent with pulmonary arterial hypertension.? No evidence of pulmonary embolus. 2. Interval development of diffuse small irregular pulmonary opacities which may be infectious or inflammatory in nature.? Atypical pneumonia is a consideration.? There has been resolution of the previously noted right upper lobe consolidation. 3. Minimally displaced left 11th and 12th rib fractures not readily apparent previously C. CTA of the chest, 06/03/2019, 1. Dense lobar consolidation in the right upper lobe and right lower lobe consistent with pneumonia with multiple small air collections within the area of consolidation most prominent in the right upper lobe worrisome for necrosis/small abscesses.? Follow-up recommended. 2. Severe narrowing of the right upper lobe bronchus. 3. Findings consistent with pulmonary arterial hypertension 4. Centrilobular and paraseptal emphysema D. CTA of the chest, 04/10/2021, IMPRESSION: 1. No pulmonary emboli. 2. Stable severe pulmonary arterial hypertension. 3. Evidence for elevated right he
--- NOTE | 2021-12-13 09:30 | CA_ITS ---
APPROVED REPORT EXAM: Comprehensive 2D, Doppler, and color-flow Echocardiogram Outreach Nurse: Chapis Conner RVT Ht: 5 ft 1 in Wt: 110lbs BSA: 1.47 BP: 116/59 mmHg Indications: STEMI,CAD,ANEMIA,POLYSUBSTANCE ABUSE,PHTN,MURMUR,COPD,CP,HLD Echo Enhancing Agent Indication: Rule out Shunt Agent(s) / Amount(s) Used: Agitated Saline 5 cc Comments: FEW BUBBLES SEEN,APPEARS POSITIVE 2D Dimensions LVOT 2.02 cm (M/F) 1.5-2.5 M-Mode Dimensions RVDd 2.65 cm (0.9-2.6) LA Diam 4.36 cm (1.9-4.0) LVDd 4.16 cm (3.5-5.7) Ao Diam 2.55 cm (2.0-3.7) LVDs 3.06 cm (3.5-5.7) IVSd 0.49 cm (0.6-1.1) PWd 0.68 cm (0.6-1.1) EF (Teich) 52.20% FS 26.40% EDV (Teich) 76.80 mL TAPSE 1.64 (<1.7) ESV (Teich) 36.70 mL LV Diastology E Decel Time 217.00 (160-240 msec) E/A Ratio 1.4 MED E' 8.50 (< 7 cm/sec) E'/MED E' Ratio 9.75 (>14) LAT E' 8.60 (<10 cm/sec) E/LAT E' Ratio 9.64 (>14) Aortic Valve AO Peak GR. 3.40 mmHg Mitral Valve MV E Max Elroy. 83.00 (40-130 cm/s) MV A Velocity 61.00 (40-130 cm/s) E/A Ratio 1.36 MV Decel. Time 217.00 (160-240 ms) MV PHT 63.00 ms Pulmonary Valve PV Peak Velocity 99.00 (50-150 cm/s) Tricuspid Valve TR P. Velocity 277.00 cm/s RAP Estimate 10.00 mmHg RVSP 40.70 mmHg Left Ventricle Left atrium is mildly enlarged, left ventricle is normal in size mild concentric left ventricular hypertrophy, estimated ejection fraction 55% with no regional wall motion abnormality, there is abnormal septal motion. Right Ventricle Right atrium and right ventricle are moderately enlarged, contractility right ventricle is moderately reduced. Aortic Valve Aortic valve is minimally thickened and fibrosed there is no aortic stenosis aortic insufficiency. Mitral Valve Mitral valve grossly normal, there is mild mitral regurgitation. Tricuspid Valve Tricuspid valve is grossly normal, there is mild tricuspid regurgitation, calculated right ventricular systolic pressure is 41 mmHg. Pulmonic Valve Pulmonic valve is poorly visualized. Great Vessels Aortic root is normal size. Inferior vena cava is poorly visualized. Pericardium No significant pericardial effusion noted. Conclusion 1. Biatrial enlargement, normal left ventricular size, mild concentric left ventricular hypertrophy, estimated ejection fraction 55% with no obvious regional wall motion abnormality, diastolic parameters are inconclusive. 2. Moderately enlarged right ventricle with moderately reduced contractility. 3. Mild mitral and tricuspid regurgitation, calculated right ventricular systolic pressure is 41 mmHg. 4. No significant pericardial effusion. 5. Inferior vena cava is poorly visualized. Electronically signed by : Sanchez Morgan MD 12/13/2021 12:39:40
--- NOTE | 2021-12-13 11:22 | PC.NURSE ---
son stepped out and said his mother was wanting to go smoke and began arguing with him. i said i would get her a nicotine patch. pt ended up leaving floor and arguing with nurse. pt cindy
--- NOTE | 2021-12-13 11:23 | EXP.DC.SUM ---
General Admission date:: 12/11/21 Discharge date: 12/13/21 HPI HPI HPI: this patient was admitted -T depression in inferior leads, ST elevation in lead V1 and V2, ST depression in the anterolateral leads. ? ? ? Arrhythmias present: sinus navin In summary patient is a 51-year-old female past medical history described below presents emergency department for evaluation of chest pain.? Patient is hemodynamically stable upon arrival.? Initial EKG is concerning for acute ischemia.? Case was discussed with cardiology they will take the patient to the Provider Relations Consultant emergently for inferior MO.? 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 The posterior lateral branch gives rise to 2 large branches with the inferior branch having proximal 40% concentric stenosis with the superior branch having proximal 30% stenosis The OLMEDO ventriculogram reveals Normal 65% The left ventricular end-diastolic pressure 10 mmHg IMPRESSION Coronary artery disease as described above Successful stenting of the right coronary artery severe disease reduced to 0% with 2 contiguous drug-eluting stents Angioplasty to a large posterior descending artery Normal ejection fraction Normal left ventricular and SI pressure PLAN 1. Brilinta 90 twice daily plus aspirin 81 mg daily 2. High intensity statin therapy with a goal LDL less than 55 to 3. Avoidance of illegal substances 4. Bisoprolol 10 mg daily plus MIMI inhibitor's once hemodynamically stable 5. Patient should remain in the hospital for 48 hours with continuous telemetry monitoring 6. Avoidance of tobacco products 7. Cardiac rehabilitation2.? Tobacco use, 1 pack/day x 40 years A.? COPD with home oxygen use 3.? History of anxiety/depression A.? CT of the head, 12/08/2021, no acute abnormality per 4.? Hypothyroidism, on replacement 5.? History of polysubstance abuse including meth and marijuana 6.? History of uterine cancer 7.? Anemia, chronic over the last 2 years with hemoglobin ranging from 9-10.5 8.? Dyslipidemia, LDL 43.8, cholesterol 128, triglycerides 87, HDL 64, 12/12/2021 A.? Statin therapy started due to STEMI and CAD, 11/2019 9.? Pulmonary hypertension, moderate-severe A.? Echocardiogram, 05/31/2018,? 1. Normal left ventricular size, preserved left ventricular systolic function, visually estimated ejection fraction of 50% with no regional wall motion abnormality 2. Moderately enlarged right ventricle with normal contractility. 3. Mild mitral and tricuspid regurgitation, calculated right ventricular systolic pressure is 58 mmHg consistent with moderate pulmonary hypertension. 4. No significant pericardial effusion noted. B.? CTA of the chest, 12/03/2018, 1. Enlarged pulmonary arteries consistent with pulmonary arterial hypertension.? No evidence of pulmonary embolus. 2. Interval development of diffuse small irregular pulmonary opacities which may be infectious or inflammatory in nature.? Atypical pneumonia is a consideration.? There has been resolution of the previously noted right upper lobe consolidation. 3. Minimally displaced left 11th and 12th rib fractures not readily apparent previously C.? CTA of the chest, 06/03/2019,? 1. Dense lobar consolidation in the right upper lobe and right lower lobe consistent with pneumonia with multiple small air collections within the area of consolidation mos
--- NOTE | 2021-12-13 11:44 | PC.NURSE ---
patient left floor with iv in place, noted patient had desires to smoke. patient locked self in bathroom where family stated she was trying to smoke. patient refused to open door. education done with patient of risks of smoking, and requests for her to open door. staff obtained dejesus and opened bathroom door. patient did become agitated and pushed at staff. Education done over need to take out IV, and risks of keeping it in and leaving floor. patient did walk back to room. she was educated on risks of leaving ama, and did ask for her to stay at this time so we could at least establish medications for home care. did agree to that. notified md of patients desires to leave, did relay cardiology had placed their recommendations for meds.
--- NOTE | 2021-12-13 12:20 | PC.NURSE ---
notified cardiology of patient discharge. they stated they would send the medication they wanted patient to go home on
--- NOTE | 2021-12-13 14:31 | PC.NURSE ---
medications from pharmacy have been given to pt. went over dc packet/ instructions with pt, son at bedside. pt is waiting on ride [place]. eta is around 1800. pt is calm and cooperative at the moment. pt requested her nicotine patch. no other questions or concerns at this time.
--- NOTE | 2021-12-14 13:24 | CARE MANAGER ---
Attempted post-discharge phone interview and there is no answer.
== END 2021-12-13 18:15 | disposition home or self-care (01) | DRG 247 ==
LOC: SDC 21:17 → ER 21:17 → 2ND 21:40
PROVIDERS: Internal Medicine; Admitting Provider Internal Medicine Adolescent Medicine; Emergency Provider Emergency Medicine; Referring Provider Surgery; Visit Provider Family Medicine
PROC: 027035Z Dilation of Coronary Artery, One Artery with Two Drug-eluting Intraluminal Devices, Percutaneous Approach (ICD-10-PCS; principal; 2021-12-11 21:05)
DX: I21.19 ST elevation (STEMI) myocardial infarction involving other coronary artery of inferior wall (principal); F41.9 Anxiety disorder, unspecified; E03.9 Hypothyroidism, unspecified; F17.210 Nicotine dependence, cigarettes, uncomplicated; Z85.42 Personal history of malignant neoplasm of other parts of uterus; E78.5 Hyperlipidemia, unspecified; Z71.6 Tobacco abuse counseling; D64.89 Other specified anemias; J43.2 Centrilobular emphysema; F15.11 Other stimulant abuse, in remission
CPT/HCPCS: 36415; 70450; 71045; 80048; 80053; 80061; 80305; 80329; 81025; 84484; 85025; 85347; 92928; 93005; 93306; 93458; 94640; 99152; 99153; 99291; C1725; C1760; C1769; C1876; C9600; C9803; J1644; Q9967; U0003; U0005